=== PATIENT | male | born 1955 | race Caucasian/White ===

== ENCOUNTER → 2017-09-05 | Outpatient (CLI) | payer MEDICARE, OTHER ==
[2017-09-05 09:49] LABS: Basophils # (A) 0.1 k/uL (0-0.2); Basophils % (A) 1 %; Eosinophils # (A) 0.3 k/uL (0-0.7); Eosinophils % (A) 4 %; HCT 40.1 % (39.0-53.0); HGB 13.8 gm/dL (13.0-17.5); Lymphocytes # (A) 1.6 k/uL (1.0-4.8); Lymphocytes % (A) 26 %; MCH 28.2 pg (25.0-35.0); MCHC 34.3 g/dL (31.0-37.0); MCV 82.3 fL (80.0-100.0); Monocytes # (A) 0.5 k/uL (0-1.0); Monocytes % (A) 9 %; Neutrophils # (A) 3.4 k/uL (1.3-7.7); Neutrophils % (A) 57 %; Platelet Count 142 k/uL (150-450); RBC 4.87 m/uL (4.30-5.90); RDW 13.9 % (11.5-15.5); WBC 5.9 k/uL (3.8-10.6)
[2017-09-05 10:28] LABS: ALT 27 U/L (21-72); AST 21 U/L (17-59); Albumin 4.6 g/dL (3.5-5.0); Alkaline Phosphatase 42 U/L (38-126); Anion Gap 10 mmol/L; Blood Urea Nitrogen 16 mg/dL (9-20); Calcium 9.6 mg/dL (8.4-10.2); Carbon Dioxide 27 mmol/L (22-30); Chloride 105 mmol/L (98-107); Cholesterol 129 mg/dL (<200); Glucose 116 mg/dL (74-99); HDL Cholesterol 32 mg/dL (40-60); LDL Cholesterol,Calculated 56 mg/dL (0-99); Potassium 5.3 mmol/L (3.5-5.1); Sodium 142 mmol/L (137-145); Total Bilirubin 0.9 mg/dL (0.2-1.3); Total Protein 7.6 g/dL (6.3-8.2); Triglycerides 206 mg/dL (<150)
[2017-09-05 10:43] LABS: T4, Free (Free Thyroxine) 0.83 ng/dL (0.78-2.19)
[2017-09-05 10:57] LABS: Prostate Specific Antigen 1.52 ng/mL (0.00-4.00)
[2017-09-05 19:24] LABS: Hemoglobin A1C 5.7 % (4.0-6.0)
== END | disposition home or self-care (01) ==
LOC: LABWHC1 08:33
PROVIDERS: ATTEND Family Medicine
DX: Z00.00 Encounter for general adult medical examination without abnormal findings (principal); E11.9 Type 2 diabetes mellitus without complications; Z79.899 Other long term (current) drug therapy
CPT/HCPCS: 36415; 80053; 80061; 83036; 84153; 84439; 84443; 85025

== ENCOUNTER → 2017-09-14 | Outpatient (CLI) | payer MEDICARE, OTHER ==
--- NOTE | 2017-09-14 13:09 | XR ---
EXAMINATION TYPE: XR shoulder complete RT DATE OF EXAM: 09/14/2017 CLINICAL HISTORY: Right shoulder pain with no known injury. TECHNIQUE: Three views of the right shoulder are obtained. COMPARISON: None. FINDINGS: There is no acute fracture/dislocation evident in the right shoulder. Multiple osseous cy sts are seen at the insertion of the rotator cuff within the greater tuberosity. There is mild joint space narrowing of the glenohumeral joint. Minimal acromioclavicular arthropathy is seen as small mar ginal osteophytes. The visualized ribs are intact and unremarkable. IMPRESSION: There is no acute fracture or dislocation in the right shoulder. Mild acromioclavicular arthropathy and glenohumeral arthropathy.
--- NOTE | 2017-09-14 13:11 | XR ---
EXAMINATION TYPE: XR cervical spine limited DATE OF EXAM: 09/14/2017 TECHNIQUE: Frontal and lateral as well as open mouth view of the cervical spine are obtained. HISTORY: M54.2 Cervicalgia neck pain and right shoulder pain COMPARISON: None FINDINGS: The cervical spine is visualized in its entirety from C1 thru the top of T1 level, it is s atisfactory in alignment without evidence of acute fracture or dislocation. The pre-vertebral soft t issue appears within normal limits. There is intervertebral disc space narrowing at C5-C6 and C6-C7 w ith small anterior osteophytes at these levels as well as uncovertebral hypertrophy and facet arthrop athy. The C1-C2 articulation is within normal limits on the open mouth view. IMPRESSION: No acute fracture or dislocation is seen in the cervical spine. Multilevel degenerative change of the cervical spine. MR could be performed to evaluate for neural foraminal narrowing for di sc herniation if there is persistent pain.
== END | disposition home or self-care (01) ==
LOC: RADXRMAIN 12:40
PROVIDERS: ATTEND Family Medicine
DX: M19.011 Primary osteoarthritis, right shoulder (principal); M47.812 Spondylosis without myelopathy or radiculopathy, cervical region
CPT/HCPCS: 72040

== ENCOUNTER → 2021-02-12 | Outpatient (CLI) | payer MEDICARE ==
--- NOTE | 2021-02-12 16:08 | CT ---
EXAMINATION TYPE: CT brain wo con DATE OF EXAM: 02/12/2021 HISTORY: visual changes, dizziness CT DLP: 1408.8 mGycm. Automated Exposure Control for Dose Reduction was Utilized. TECHNIQUE: CT scan of the head is performed without contrast. COMPARISON: None. FINDINGS: There is no acute intracranial hemorrhage or midline shift identified. Right parietal crate builder niotomy change. There is mild to moderate diffuse ventricular and sulcal prominence consistent with d iffuse age-related cerebral atrophy. Asymmetric increased right temporal lobe atrophy with old infarc t central inferior right occipital lobe. Ex vacuo dilatation of the right occipital and temporal horn s noted. There is mild to moderate low-attenuation in the periventricular white matter consistent wit h chronic small vessel ischemic change. The globes are intact and the visualized sinuses are clear. IMPRESSION: No acute intracranial hemorrhage or midline shift. There is mild to moderate diffuse ag e-related cerebral atrophy and chronic small vessel ischemic change. Right-sided postsurgical change with asymmetric right-sided atrophy and old infarct all noted. Involvement medial right occipital lob e inferiorly is present and may account for visual changes. Correlation with old outside CT or MRI wo uld be beneficial.
== END | disposition home or self-care (01) ==
LOC: RADCTMAIN 15:17
PROVIDERS: ATTEND Nurse Practitioner Family
DX: H53.8 Other visual disturbances (principal)
CPT/HCPCS: 70450

== ENCOUNTER 2021-05-04 16:56 | Emergency (ER) | payer MEDICARE ==
[2021-05-04 17:18] VITALS: TEMP 97.4
[2021-05-04 17:19] VITALS: RESP 18
--- NOTE | 2021-05-04 18:31 | CT ---
EXAMINATION TYPE: CT brain clarke ceja DATE OF EXAM: 05/04/2021 COMPARISON: 02/12/2021 CT brain HISTORY: Fall Pain CT DLP: 1621.4 mGycm Automated exposure control for dose reduction was used. There is 4 x 2 cm area of hypodensity right occipital lobe related to old infarct. There is no mass e ffect or midline shift. There is mild frontal lobe cortical atrophy. There is no evidence of intracra nial hemorrhage. The calvarium is intact. The skull base is intact. The cervical vertebra show fairly normal alignment. There is a minimal C4-5 subluxation. Facet joints are intact. There is multilevel hypertrophic mild facet arthropathy. No compression fracture. IMPRESSION: Mild spondylotic changes in the cervical spine. Mild degenerative disc space narrowing at C5-6 and C6 -7. No compression fracture. 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 No acute intracranial abnormality. Brain not changed jia red to old exam.
--- NOTE | 2021-05-04 18:55 | ED ---
General Adult HPI - General Chief complaint: Fall Stated complaint: fall Time Seen by Provider: 05/04/21 17:09 Source: family, EMS, RN notes reviewed, old records reviewed Mode of arrival: EMS Limitations: language barrier - History of Present Illness Initial comments: 65-year-old male history of traumatic brain injury and making 76 presenting with an episode of altered level consciousness, and fall in the bathroom. The history is obtained from the patient's family is who is at bedside. He had a recent admission to [facility] about one week ago with a similar circumstance. He was started on seizure medication at this time. The exact details of this admission or not known but he did have EEG and is awaiting the results of this. Patient is at his baseline at the time my evaluation. He is unable to verbally communicate but his family is able to give a history. He did hit his head. Uncertain if he fell hit his head and lost consciousness or if he lost consciousness prior to this. There was no witnessed seizure activity. The return to normal within about 15 minutes. - Related Data Home Medications Medication Instructions Recorded Confirmed Aspirin EC [Ecotrin Low Dose] 81 mg PO DAILY 05/04/21 05/04/21 Atorvastatin Calcium [Lipitor] 40 mg PO HS 05/04/21 05/04/21 Clopidogrel Bisulfate [Plavix] 75 mg PO DAILY 05/04/21 05/04/21 Empagliflozin [Jardiance] 25 mg PO DAILY 05/04/21 05/04/21 Isosorbide Mononitrate ER [Imdur] 30 mg PO DAILY 05/04/21 05/04/21 Lactulose [Constulose] 10 gm PO DAILY 05/04/21 05/04/21 Loratadine 10 mg PO DAILY 05/04/21 05/04/21 Metoprolol Succinate [Toprol XL] 50 mg PO DAILY 05/04/21 05/04/21 Multivitamins, Thera [Multivitamin 1 tab PO DAILY 05/04/21 05/04/21 (formulary)] Omeprazole 20 mg PO DAILY 05/04/21 05/04/21 Rifaximin [Xifaxan] 550 mg PO BID 05/04/21 05/04/21 levETIRAcetam [Keppra] 500 mg PO BID 05/04/21 05/04/21 metFORMIN HCL 500 mg PO DAILY 05/04/21 05/04/21 Allergies Allergy/AdvReac Type Severity Reaction Status Date / Time Penicillins AdvReac Unknown Verified 05/04/21 18:59 Review of Systems ROS Statement: Those systems with pertinent positive or pertinent negative responses have been documented in the HPI. ROS Other: All systems not noted in ROS Statement are negative. Past Medical History Past Medical History: Unable to Obtain Additional Past Medical History / Comment(s): Head injury in 1973. History of Any Multi-Drug Resistant Organisms: None Reported Past Surgical History: Unable to Obtain Smoking Status: Unknown if ever smoked General Exam Limitations: language barrier General appearance: alert, in no apparent distress Head exam: Present: atraumatic, normocephalic Eye exam: Present: normal appearance, PERRL ENT exam: Present: normal exam Neck exam: Present: normal inspection. Absent: tenderness, meningismus Respiratory exam: Present: normal lung sounds bilaterally. Absent: respiratory distress, wheezes, rales Cardiovascular Exam: Present: regular rate, normal rhythm GI/Abdominal exam: Present: soft. Absent: distended, tenderness, guarding Extremities exam: Present: normal inspection, normal capillary refill. Absent: pedal edema Neurological exam: Present: alert, other (Baseline mental status) Skin exam: Present: warm, dry, intact. Absent: cyanosis, diaphoretic Course Vital Signs 05/04/21 05/04/21 16:59 19:01 Temperature 97.4 F L Pulse Rate 82 67 Respiratory 18 18 Rate Blood Pressure 149/88 163/92 O2 Sat by Pulse 94 L 98 Oximetry Medical Decision Making - Medical Decision Making 65-year-old male with fall, possible seizure. I discussed case with Dr. Richards and reviewed some of the records from [facility]. It does appear after talking Dr. Richards that the patient may be having recurrent seizure. We discussed increasing his Keppra 2000 mg twice daily. At this time the patient will be discharged home with close outpatient follow-up. 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 Unchanged. Disposition Clinical Impression: Fall, Seizure Disposition: HOME SELF-CARE Condition: Fair Instructions (If sedation given, give patient instructions): Recurrent Seizures in Adults (ED) Additional Instructions: Please take 1000 mg of Keppra twice daily.(2- 500 mg tablets twice daily.) Is patient prescribed a controlled substance at d/c from ED?: No Referrals: Alejandro Richards MD [Primary Care Provider] - 1-2 days William Aly MD [REFERRING] - 1-2 days Tereso Orlando DO [STAFF PHYSICIAN] - 1-2 days Time of Disposition: 19:00
[2021-05-04 19:02] VITALS: BP 163/92; PULSE 67
== END 2021-05-04 19:32 | disposition home or self-care (01) ==
LOC: EC 16:56
DX: R56.9 Unspecified convulsions (principal); Z88.0 Allergy status to penicillin; W18.2XXA Fall in (into) shower or empty bathtub, initial encounter
CPT/HCPCS: 70450; 72125; 99284

== ENCOUNTER 2021-08-29 14:39 | Inpatient (IN) | payer MEDICARE ==
[2021-08-29 14:54] LABS: Glucose,Whole Blood 131 mg/dL (70-110)
[2021-08-29 14:58] LABS: Basophils % (A) 1 %; Eosinophils # (A) 0.3 k/uL (0-0.7); Eosinophils % (A) 5 %; HCT 36.4 % (39.0-53.0); HGB 12.2 gm/dL (13.0-17.5); Lymphocytes # (A) 1.5 k/uL (1.0-4.8); Lymphocytes % (A) 30 %; MCH 28.1 pg (25.0-35.0); MCHC 33.5 g/dL (31.0-37.0); MCV 83.7 fL (80.0-100.0); Mean Platelet Volume 8.5; Monocytes # (A) 0.4 k/uL (0-1.0); Monocytes % (A) 8 %; Neutrophils # (A) 2.7 k/uL (1.3-7.7); Neutrophils % (A) 54 %; Platelet Count 139 k/uL (150-450); RBC 4.35 m/uL (4.30-5.90); RDW 13.5 % (11.5-15.5)
--- NOTE | 2021-08-29 14:58 | ED ---
General Adult HPI - General Stated complaint: seizure Time Seen by Provider: 08/29/21 14:39 Source: patient, RN notes reviewed, old records reviewed - History of Present Illness Initial comments: This is a 65-year-old male who presents emergency Department with a history of closed head injury back in the 70s. Patient has history of seizures and is on Keppra. According to the senior living where he stays he had 2 seizures this m orning when EMS arrived he was unresponsive and they were told that that is how he has a seizure so they gave him 5 of Versed patient never had any tonic-clonic movements. Patient does respond to sternal rub very quickly and appropriately. No other history is available this time - Related Data Home Medications Medication Instructions Recorded Confirmed Clopidogrel Bisulfate [Plavix] 75 mg PO DAILY@79905/04/21 08/29/21 Empagliflozin [Jardiance] 25 mg PO DAILY@79905/04/21 08/29/21 Isosorbide Mononitrate ER [Imdur] 30 mg PO DAILY@79905/04/21 08/29/21 Lactulose [Constulose] 10 gm PO BID@08,199905/04/21 08/29/21 Loratadine 10 mg PO DAILY@79905/04/21 08/29/21 Metoprolol Succinate [Toprol XL] 50 mg PO DAILY@79905/04/21 08/29/21 Multivitamins, Thera [Multivitamin 1 tab PO DAILY@79905/04/21 08/29/21 (formulary)] Omeprazole 20 mg PO DAILY@79905/04/21 08/29/21 Rifaximin [Xifaxan] 550 mg PO BID@08,199905/04/21 08/29/21 metFORMIN HCL 500 mg PO DAILY@79905/04/21 08/29/21 Ibuprofen [Motrin] 600 mg PO Q8HR PRN 08/29/21 08/29/21 levETIRAcetam [Keppra] 1,000 mg PO BID@0800,199908/29/21 08/29/21 levETIRAcetam [Keppra] 250 mg PO BID@0800,199908/29/21 08/29/21 Allergies Allergy/AdvReac Type Severity Reaction Status Date / Time Penicillins AdvReac Unknown Verified 08/29/21 16:14 Review of Systems ROS Statement: Those systems with pertinent positive or pertinent negative responses have been documented in the HPI. ROS Other: All systems not noted in ROS Statement are negative. Past Medical History Past Medical History: Unable to Obtain Additional Past Medical History / Comment(s): Head injury in 1973. History of Any Multi-Drug Resistant Organisms: None Reported Past Surgical History: Unable to Obtain Smoking Status: Unknown if ever smoked General Exam - General Exam Comments Initial Comments: GENERAL: Patient is well-developed and well-nourished. Patient is nontoxic and well- hydrated and is in no acute distress. ENT: Neck is soft and supple. Neck has full range of motion without eliciting any pain. EYES: The sclera were anicteric and conjunctiva were pink and moist. PULMONARY: Unlabored respirations. Good breath sounds bilaterally. No audible rales rhonchi or wheezing was noted. CARDIOVASCULAR: Patient is tachycardic at 105 bpm ABDOMEN: Soft and nontender with normal bowel sounds. SKIN: Skin is clear with no lesions or rashes and otherwise unremarkable. NEUROLOGIC: Patient is not responding at this time. Patient is able to move all 4 extremities. MUSCULOSKELETAL: Patient does move all 4 extremities. LYMPHATICS: No significant lymphadenopathy is noted PSYCHIATRIC: Unable to assess Course Vital Signs 08/29/21 08/29/21 08/29/21 14:41 14:56 15:33 Temperature 97.6 F Pulse Rate 79 75 72 Respiratory 16 18 18 Rate Blood Pressure 119/77 128/89 O2 Sat by Pulse 95 94 L Oximetry Medical Decision Making - Medical Decision Making EKG shows sinus rhythm at 75 bpm CA interval 295 QRS is 90 QT interval 383 QTC is 411. EKG shows no ST segment elevation or depression. CT of the brain shows no acute abnormalities. I spoke with the mother and she states that he was diagnosed with seizures even though all of his episodes of unresponsive episode and that no testing is been done to determine that he had seizures. She is questioning whether he has seizures. I spoke with Dr. England he agreed to admit the patient admitted the patient wrote admitting orders. I consult the neurology. - Lab Data Result diagrams: 08/29/21 14:50 08/29/21 14:50 Lab Results 08/29/21 08/29/21 08/29/21 Range/Units 14:50 14:50 14:52 WBC 5.0 (3.8-10.6) k/uL RBC 4.35 (4.30-5.90) m/uL Hgb 12.2 L (13.0-17.5) gm/dL Hct 36.4 L (39.0-53.0) % MCV 83.7 (80.0-100.0) fL MCH 28.1 (25.0-35.0) pg MCHC 33.5 (31.0-37.0) g/dL RDW 13.5 (11.5-15.5) % Plt Count 139 L (150-450) k/uL MPV 8.5 Neutrophils % 54 % Lymphocytes % 30 % Monocytes % 8 % Eosinophils % 5 % Basophils % 1 % Neutrophils # 2.7 (1.3-7.7) k/uL Lymphocytes # 1.5 (1.0-4.8) k/uL Monocytes # 0.4 (0-1.0) k/uL Eosinophils # 0.3 (0-0.7) k/uL Basophils # 0.0 (0-0.2) k/uL Sodium 138 (137-145) mmol/L Potassium 3.9 (3.5-5.1) mmol/L Chloride 109 H (98-107) mmol/L Carbon Dioxide 23 (22-30) mmol/L Anion Gap 6 mmol/L BUN 12 (9-20) mg/dL Creatinine 0.56 L (0.66-1.25) mg/dL Est GFR (CKD-EPI)AfAm >90 (>60 ml/min/1.73 sqM) Est GFR (CKD-EPI)NonAf >90 (>60 ml/min/1.73 sqM) Glucose 140 H (74-99) mg/dL POC Glucose (mg/dL) 131 H (70-110) mg/dL POC Glu Personal Assistant ID Carlos, Pamela Calcium 8.7 (8.4-10.2) mg/dL Total Bilirubin 0.4 (0.2-1.3) mg/dL AST 23 (17-59) U/L ALT 14 (4-49) U/L Alkaline Phosphatase 50 (38-126) U/L Total Protein 6.3 (6.3-8.2) g/dL Albumin 3.7 (3.5-5.0) g/dL Disposition Clinical Impression: Unresponsive episode Disposition: ADMITTED IP TO THIS HOSP Referrals: Alejandro Richards MD [STAFF PHYSICIAN] - 1-2 days Time of Disposition: 16:40
[2021-08-29 15:07] LABS: ALT 14 U/L (4-49); AST 23 U/L (17-59); African American GFR (CKD) >90 (>60 ml/min/1.73 sqM); Albumin 3.7 g/dL (3.5-5.0); Alkaline Phosphatase 50 U/L (38-126); Anion Gap 6 mmol/L; Blood Urea Nitrogen 12 mg/dL (9-20); Calcium 8.7 mg/dL (8.4-10.2); Carbon Dioxide 23 mmol/L (22-30); Chloride 109 mmol/L (98-107); Glucose 140 mg/dL (74-99); Non-African American GFR(CKD) >90 (>60 ml/min/1.73 sqM); Potassium 3.9 mmol/L (3.5-5.1); Sodium 138 mmol/L (137-145); Total Bilirubin 0.4 mg/dL (0.2-1.3); Total Protein 6.3 g/dL (6.3-8.2)
--- NOTE | 2021-08-29 15:11 | XR ---
EXAMINATION TYPE: XR chest 1V portable DATE OF EXAM: 08/29/2021 3:08 PM COMPARISON: None TECHNIQUE: XR chest 1V portable Portable AP radiograph of the chest. CLINICAL INDICATION:Male, 65 years old with history of Short of breath; FINDINGS: Lungs/Pleura: Airspace opacities are seen projecting over the heart. No pneumothorax or pleural effus ion. Pulmonary vascularity: Unremarkable. Heart/mediastinum: Cardiomediastinal silhouette is unremarkable. Musculoskeletal: No acute osseous pathology. IMPRESSION: Left lower lung airspace opacities correlate for pneumonia.
--- NOTE | 2021-08-29 15:48 | CT ---
EXAMINATION TYPE: CT brain wo con CT DLP: 1247.4 mGycm, Automated exposure control for dose reduction was used. DATE OF EXAM: 08/29/2021 3:40 PM COMPARISON: CT brain most recently 05/04/2021 CLINICAL INDICATION:Male, 65 years old with history of Status epilepticus, TECHNIQUE: Brain: Multiple axial CT images of the brain were obtained without IV contrast. FINDINGS: Brain: Extra-axial spaces: No abnormal extra-axial fluid collections. Ventricular system: Mild ex vacuo dilatation of the right lateral ventricle trigone and temporal horn . Cerebral parenchyma: Encephalomalacia of the right occipital lobe and temporal lobe from prior injury findings are similar to prior. No acute intraparenchymal hemorrhage or mass effect. The yung-white junction is well differentiated. Cerebellum: Unremarkable. Mass effect: No evidence of midline shift. Intracranial vasculature: unremarkable Soft tissues: Normal. Calvarium/osseous structures: No depressed skull fracture. Postsurgical changes of the right skull. Paranasal sinuses and mastoid air cells: Mild scattered paranasal sinus disease. Visualized orbits: Bilateral aphakia IMPRESSION: 1. No acute intracranial process. 2. Similar encephalomalacia of the right temporal and occipital lobe from prior injury.
[2021-08-29] MEDS ORDERED: LORazepam 2 MG/ML INJ IV PRN (20:53)
[2021-08-29] MEDS ORDERED: LORazepam 2 MG/ML INJ IV STA (20:53)
[2021-08-29] MEDS ORDERED: levETIRAcetam IV 1,500 MG in SALINE 1 100ML.BAG IVPB ONE (21:00)
[2021-08-29 23:15] LABS: Glucose,Whole Blood 113 mg/dL (70-110)
[2021-08-30 07:29] LABS: Glucose,Whole Blood 121 mg/dL (70-110)
[2021-08-30] MEDS ORDERED: levETIRAcetam 250 MG TAB PO SCH (08:00)
[2021-08-30] MEDS ORDERED: levETIRAcetam 500 MG TAB PO SCH (08:00)
--- NOTE | 2021-08-30 08:13 | P.CNNES ---
History of Present Illness Consult date: 08/30/21 Requesting physician: Vitor Iraheta Reason for Consult: unresponsive episodes History of Present Illness: This is a 65-year-old gentleman with medical history of seizure, remote closed head injury who presented to the emergency department from custodial since he had seizures. History is obtained from medical record that. It seems that the patient had the 2 seizures in the morning according to the ED notes and when the EMS arrived the patient was unresponsive and as a result the patient the given 5 mg Versed. In the ED the patient was responding to sternal rub. Patient is on Keppra 1250 mg 1 tablet twice a day for seizures. Patient is following up with his neurologist (Dr. Tejinder Vásquez). It seems per the nurse yesterday during the day prior to shift change, the mother notified the nurse that did not feel his episodes of unresponsiveness were seizures but even though the patient was getting Keppra. I do know to what extent the patient had a workup at his local neurologist office. While the patient was on the floors patient had further seizure and I was notified around 8:42 PM yesterday by the nurse that the patient had a seizure lasting for about 45 minutes and it was between 2028 2023. I notified her to give the patient to milligram Ativan, to give him a loading dose of Keppra 1500 mg once, if he continues to have seizures to give them 100 mg on Vimpat once and Ativan 1 mg every 4 hours as needed for seizures. According to today's nurse patient had a total of 5 seizures and unsure when was the last 1 possibly could have been yesterday at 9pm but unsure. I spoke with the sitter and they stated no seizures prior to midnight. It seems the patient was not given Vimpat and I assume he did not have any seizures after I spoke to the patient's nurse last night SOME OF THE WORK-UP IN OUR FACILITY CONSISTED OF: Initial white blood cells 5.0 thousand Initial serum glucose was 140 at. The calcium is 8.7. Sodium is 138, creatinine is up 0.56. AST and ALT is within normal limits Keppra level was 20.1 (normal is between 3-60). CT head is reported as no acute intracranial process. Similar encephalomalacia of the right temporal and occipital lobe from prior injury. I personally reviewed the CT of the head and I agree with report. The patient does have a skull defect over the right hemisphere. Review of Systems Review of system is limited with apparent positive and negative as per HPI Past Medical History Past Medical History: Diabetes Mellitus, Liver Disease, Myocardial Infarction ([place]) Additional Past Medical History / Comment(s): Head injury in 1973. Last Myocardial Infarction Date:: unknown History of Any Multi-Drug Resistant Organisms: None Reported Past Surgical History: Appendectomy, Orthopedic Surgery Additional Past Surgical History / Comment(s): brain, samson left leg, left leg cyst removal Past Anesthesia/Blood Transfusion Reactions: No Reported Reaction Past Psychological History: No Psychological Hx Reported Smoking Status: Former smoker Past Alcohol Use History: Unable to Obtain Past Drug Use History: Unable to Obtain Medications and Allergies Home Medications Medication Instructions Recorded Confirmed Type Clopidogrel Bisulfate [Plavix] 75 mg PO DAILY@00 05/04/21 08/29/21 History Empagliflozin [Jardiance] 25 mg PO DAILY@79905/04/21 08/29/21 History Isosorbide Mononitrate ER [Imdur] 30 mg PO DAILY@79905/04/21 08/29/21 History Lactulose [Constulose] 10 gm PO BID@799,199905/04/21 08/29/21 History Loratadine 10 mg PO DAILY@79905/04/21 08/29/21 History Metoprolol Succinate [Toprol XL] 50 mg PO DAILY@0805/04/21 08/29/21 History Multivitamins, Thera [Multivitamin 1 tab PO DAILY@79905/04/21 08/29/21 History (formulary)] Omeprazole 20 mg PO DAILY@79905/04/21 08/29/21 History Rifaximin [Xifaxan] 550 mg PO BID@799,199905/04/21 08/29/21 History metFORMIN HCL 500 mg PO DAILY@79905/04/21 08/29/21 History Ibuprofen [Motrin] 600 mg PO Q8HR PRN 08/29/21 08/29/21 History levETIRAcetam [Keppra] 1,000 mg PO BID@08,199908/29/21 08/29/21 History levETIRAcetam [Keppra] 250 mg PO BID@08,199908/29/21 08/29/21 History Allergies Allergy/AdvReac Type Severity Reaction Status Date / Time Penicillins AdvReac Unknown Verified 08/29/21 16:14 Physical Examination - Vital Signs Vital Signs: Vital Signs Temp Pulse Pulse Resp BP BP Pulse Ox 08/30/21 06:51 97.6 F 78 13 134/78 95 08/30/21 04:23 97.8 F 84 16 148/94 93 L 08/29/21 19:42 97.9 F 80 16 153/91 95 08/29/21 17:57 97 F L 71 22 120/80 95 08/29/21 17:00 97.9 F 68 18 115/65 95 08/29/21 16:00 64 18 113/65 94 L 08/29/21 15:33 72 18 128/89 94 L 08/29/21 14:56 75 18 95 08/29/21 14:41 97.6 F 79 16 119/77 Intake and Output 08/29/21 08/30/21 08/30/21 22:59 06:59 14:59 Intake Total 580 Balance 580 Intake: Intake, IV Titration 100 Amount levETIRAcetam IV 1,500 mg 100 In Saline 1 100ml.bag @ 400 mls/hr IVPB ONCE ONE Rx#:[id number] Oral 480 Other: Voiding Method Bedpan Urinal # Voids 1 4 Weight 86.999 kg GENERAL: The patient is lying in bed and does not appear in acute distress. CHEST: The heart rate is regular rate rhythm. No murmurs to auscultation. LUNG: Clear to auscultation bilaterally no wheezing noted throughout. Not lab ored breathing. ABDOMEN/GI: Bowel sounds present in all 4 quadrants. No tenderness to palpation throughout. NEUROLOGICAL: Limited because of his condition. Higher mental function: The patient is severely drowsy and minimally/hardly awakeable to painful stimuli. He is not vocalizing verbally. But he is following few simple commands (thumbs up, sticking tongue out, and wiggling his toes). Cranial nerves: The pupils are hard to assess since kept his eyes closed and then when trying to open them he was forcing his eyes closed. No facial weakness. Sticking his tongue out without any difficulty. r Motor: The strength is unable to assess individual extremities because of his condition. Decrease tone throughout. Normal bulk. Cerebellum: Unable to assess. Sensation: Unable to assess light touch Reflexes (right/left): 1+ throughout. Plantars are mute bilaterally. Results - Laboratory Findings CBC and BMP: 08/29/21 14:50 08/29/21 14:50 Abnormal Lab Findings: Abnormal Labs 08/29/21 08/29/21 08/29/21 14:50 14:50 14:52 Hgb 12.2 L Hct 36.4 L Plt Count 139 L Chloride 109 H Creatinine 0.56 L Glucose 140 H POC Glucose (mg/dL) 131 H 08/29/21 08/30/21 23:14 07:27 Hgb Hct Plt Count Chloride Creatinine Glucose POC Glucose (mg/dL) 113 H 121 H Assessment and Plan Assessment: Status Epilepticus (patient had reported multiple unresponsiveness/seizure-like activities). He is on Keppra 1250mg bid but his level is 20.1 and would expect his level to be higher if he is on that dose. Unsure if he missed any medications/not given as prescribed vs Gastrointestinal symptoms (diarrhea, vomiting). History of seizures History of remote closed head injury (in ) History of encephalomalcia over the right temporal/occipital region Plan: I increased his Keppra from 1250mg bid to 1500mg and for now IV. Will consider starting also Vimpat. Ordered EEG. on Ativan 1mg Q4 hours. Continue neuro checks Placed on seizure precaution and pad. Continue sitter at bedside for now Will defer the rest of medical management to primary team. Upon discharge, patient needs to follow-up with a neurologist within 1-2 weeks. He follows-up with Dr. Tejinder Vásquez. The plan is discussed with nurse. Thank you for the consultation. UPDATE: Routine EEG did not reveal any seizures, epileptiform discharges or focal slowing. As result I will not start patient on Vimpat. I will order repeat Keppra level at night tonight and will assess if level improves. If does then one of possibilities is having GI symptoms or patient not getting medication at his nursing facility. Plan is discussed with primary team. Tejinder Lundberg M.D. Neuro-Hospitalist Time with Patient: Greater than 30
[2021-08-30] MEDS ORDERED: LACOSAMIDE IV 50 MG in SODIUM CHLORIDE 0.9% 50 ML IVPB SCH (09:00)
[2021-08-30] MEDS: levETIRAcetam IV 1,500 MG in SALINE 1 100ML.BAG IVPB SCH ×2 (09:10→20:52)
[2021-08-30] MEDS: CLOPIDOGREL 75 MG TAB PO SCH (09:23)
[2021-08-30] MEDS: METOPROLOL SUCCINATE (ER) 50 MG TAB.ER.24H PO SCH (09:23)
[2021-08-30] MEDS: ISOSORBIDE MONONITRATE ER 30 MG TAB.ER.24H PO SCH (09:24)
[2021-08-30] MEDS: RIFAXIMIN 550 MG TABLET PO SCH ×2 (09:25→20:48)
[2021-08-30] MEDS: LORATADINE 10 MG TAB PO SCH (09:25)
[2021-08-30] MEDS: LACTULOSE 20 GM/30 ML CUP PO SCH ×2 (09:26→20:48)
[2021-08-30] MEDS: PANTOPRAZOLE 40 MG TABLET PO SCH (09:26)
--- NOTE | 2021-08-30 11:22 | EEG ---
ELECTROENCEPHALOGRAM REPORT DATE OF SERVICE: 08/30/2021. 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 The video EEG is obtained to evaluate for seizure epileptiform activity. RELEVANT MEDICATIONS: Keppra and Ativan. EEG TYPE: A routine 21 channel EEG is performed with video using the 10/20 electrode placement system. DESCRIPTION: Wakefulness and drowsiness are obtained. During awake state, the posterior- dominant rhythm consists of low to moderate voltage of 9-10 hertz activity. There is no physiological stage 2 sleep architecture. There is no focal slowing. There is high amplitude activity over the left central-parietal region consistent with breach rhythm. Interictal and ictal is none. Photic stimulation did not evoke a posterior driving response. There is no abnormality during the photic stimulation. Hyperventilation is not performed. CLINICAL INTERPRETATION: This is an abnormal routine EEG. The breach rhythm is consistent with the patient's history of skull defect. Otherwise, the background is normal and there is no focal slowing, epileptiform discharges or seizure on the EEG. Clinical correlation is recommended. MMODL / IJN: [id number] / MTDDavi
[2021-08-30] MEDS: NON FORMULARY DRUG (Empagliflozin [Jardiance] 25 MG Tablet) PO SCH (11:28)
[2021-08-30 11:52] LABS: Glucose,Whole Blood 173 mg/dL (70-110)
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
[2021-08-30] MEDS: INSULIN ASPART (NovoLOG) 100 UNIT/ML VIAL SQ SCH ×3 (13:05→20:47)
[2021-08-30 17:23] LABS: Glucose,Whole Blood 139 mg/dL (70-110)
[2021-08-30] MEDS ORDERED: HYDROcodone/APAP 5-325MG 1 EACH TAB PO PRN (18:43)
[2021-08-30] MEDS ORDERED: LIDOCAINE 2% GEL 30 ML TUBE TOPICAL PRN (18:43)
[2021-08-30 19:53] LABS: Glucose,Whole Blood 203 mg/dL (70-110)
[2021-08-30] MEDS: HEPARIN SODIUM,PORCINE/PF 5,000 UNIT/0.5 ML SYRINGE SQ SCH (20:48)
[2021-08-31 08:14] LABS: Glucose,Whole Blood 120 mg/dL (70-110)
[2021-08-31] MEDS: INSULIN ASPART (NovoLOG) 100 UNIT/ML VIAL SQ SCH ×2 (08:16→12:36)
[2021-08-31 08:21] VITALS: RESP 18
[2021-08-31] MEDS: RIFAXIMIN 550 MG TABLET PO SCH (09:11)
[2021-08-31] MEDS: ISOSORBIDE MONONITRATE ER 30 MG TAB.ER.24H PO SCH (09:11)
[2021-08-31] MEDS: LORATADINE 10 MG TAB PO SCH (09:11)
[2021-08-31] MEDS: CLOPIDOGREL 75 MG TAB PO SCH (09:11)
[2021-08-31] MEDS: LACTULOSE 20 GM/30 ML CUP PO SCH (09:12)
[2021-08-31] MEDS: METOPROLOL SUCCINATE (ER) 50 MG TAB.ER.24H PO SCH (09:12)
[2021-08-31] MEDS: HEPARIN SODIUM,PORCINE/PF 5,000 UNIT/0.5 ML SYRINGE SQ SCH (09:12)
[2021-08-31] MEDS: PANTOPRAZOLE 40 MG TABLET PO SCH (09:12)
[2021-08-31] MEDS: levETIRAcetam IV 1,500 MG in SALINE 1 100ML.BAG IVPB SCH (09:14)
[2021-08-31] MEDS: NON FORMULARY DRUG (Empagliflozin [Jardiance] 25 MG Tablet) PO SCH (09:19)
[2021-08-31 11:23] LABS: Glucose,Whole Blood 226 mg/dL (70-110)
[2021-08-31 11:42] VITALS: BP 128/75; PULSE 87; TEMP 97.7
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
== END 2021-08-31 15:30 | disposition home or self-care (01) | DRG 101 ==
LOC: EC 14:39 → 5NMEDONC 16:48
PROVIDERS: ADMIT Internal Medicine Geriatric Medicine; ATTEND Internal Medicine Geriatric Medicine
DX: G40.901 Epilepsy, unspecified, not intractable, with status epilepticus (principal); G93.89 Other specified disorders of brain; I10 Essential (primary) hypertension; I25.10 Atherosclerotic heart disease of native coronary artery without angina pectoris; I25.2 Old myocardial infarction; J30.2 Other seasonal allergic rhinitis; M54.12 Radiculopathy, cervical region; E11.9 Type 2 diabetes mellitus without complications; Z87.820 Personal history of traumatic brain injury; Z87.891 Personal history of nicotine dependence; Z82.49 Family history of ischemic heart disease and other diseases of the circulatory system; Z79.899 Other long term (current) drug therapy; Z79.84 Long term (current) use of oral hypoglycemic drugs; Z79.02 Long term (current) use of antithrombotics/antiplatelets; Z86.19 Personal history of other infectious and parasitic diseases; K76.9 Liver disease, unspecified
CPT/HCPCS: 36415; 70450; 71045; 80053; 80177; 85025; 93005; 95816; 99285

== ENCOUNTER 2021-09-06 10:18 | Observation (INO) | payer MEDICARE ==
[2021-09-06] MEDS ORDERED: levETIRAcetam IV 1,000 MG in SALINE 1 100ML.BAG IVPB STA (10:40)
[2021-09-06 10:41] LABS: Glucose,Whole Blood 151 mg/dL (70-110)
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
[2021-09-06 10:55] LABS: Basophils % (A) 1 %; Eosinophils # (A) 0.2 k/uL (0-0.7); Eosinophils % (A) 5 %; HCT 39.9 % (39.0-53.0); HGB 13.1 gm/dL (13.0-17.5); Lymphocytes # (A) 1.3 k/uL (1.0-4.8); Lymphocytes % (A) 28 %; MCH 27.4 pg (25.0-35.0); MCHC 32.7 g/dL (31.0-37.0); MCV 83.7 fL (80.0-100.0); Mean Platelet Volume 8.8; Monocytes # (A) 0.5 k/uL (0-1.0); Monocytes % (A) 11 %; Neutrophils # (A) 2.5 k/uL (1.3-7.7); Neutrophils % (A) 53 %; Platelet Count 140 k/uL (150-450); RBC 4.77 m/uL (4.30-5.90); RDW 13.4 % (11.5-15.5); WBC 4.7 k/uL (3.8-10.6)
[2021-09-06 11:03] LABS: African American GFR (CKD) >90 (>60 ml/min/1.73 sqM); Anion Gap 7 mmol/L; Blood Urea Nitrogen 15 mg/dL (9-20); Calcium 8.9 mg/dL (8.4-10.2); Carbon Dioxide 25 mmol/L (22-30); Chloride 105 mmol/L (98-107); Glucose 168 mg/dL (74-99); Magnesium 1.9 mg/dL (1.6-2.3); Non-African American GFR(CKD) >90 (>60 ml/min/1.73 sqM); Potassium 3.9 mmol/L (3.5-5.1); Sodium 137 mmol/L (137-145)
[2021-09-06] MEDS ORDERED: NALOXONE 0.4 MG/ML 1 ML VIAL IV PRN (14:00)
[2021-09-06] MEDS ORDERED: SODIUM CHLORIDE 0.9% 1,000 ML IV SCH (14:00)
[2021-09-06] MEDS ORDERED: LORazepam 2 MG/ML INJ IV PRN (14:01)
[2021-09-06] MEDS ORDERED: IBUPROFEN 600 MG TAB PO PRN (16:00)
--- NOTE | 2021-09-06 16:39 | CT ---
EXAMINATION TYPE: CT brain wo con DATE OF EXAM: 09/06/2021 COMPARISON: 08/29/2021 HISTORY: 65-year-old male seizure TECHNIQUE: Examination was done in axial plane without intravenous contrast. Coronal and sagittal r econstructions performed. CT DLP: 1181.4 mGycm Automated exposure control for dose reduction was used. FINDINGS: There is no evidence of acute intracranial hemorrhage, acute ischemic changes, mass, mass-effect, or extra-axial fluid collection. There is no effacement of cerebral sulci or basal subarachnoid cister ns. There is no hydrocephalus. There is no midline shift. Duncan-white matter distinction is preserv ed. Moderate generalized supratentorial volume loss. Old right occipital lobe infarct. Secondary asymmetr ic ex vacuo dilatation atrium and occipital horn right lateral ventricle. Old antonio hole right lateral convexity. Paranasal sinuses and mastoid air cells are well pneumatized. Orbits and globes are intact. IMPRESSION: No acute intracranial abnormality seen. Stable mild generalized atrophy and old right occipital lobe infarct.
--- NOTE | 2021-09-06 16:40 | XR ---
EXAMINATION TYPE: XR chest 1V portable DATE OF EXAM: 09/06/2021 COMPARISON: Chest x-ray dated 08/29/2021 HISTORY: Congestive heart failure TECHNIQUE: Single frontal view of the chest is obtained. FINDINGS: Lung volumes are low. Some perihilar vascular indistinctness is again noted. There is no fo madeline air space opacity, pleural effusion, or pneumothorax seen. The cardiac silhouette size is stable . The osseous structures are intact. IMPRESSION: Findings may be the basis of expiratory technique, difficult to exclude interstitial noel ma although findings appear somewhat improved compared to prior exam. Consider follow-up PA and later al chest x-ray when stable.
[2021-09-06 16:44] LABS: Appearance,Urine Clear (Clear); Bilirubin,Urine Negative (Negative); Blood,Urine Negative (Negative); Color,Urine Yellow; Glucose,Urine (UA) 4+ (Negative); Ketones,Urine Negative (Negative); Leukocyte Esterase,Urine Negative (Negative); Nitrite,Urine Negative (Negative); PH, Urine 6.5 (5.0-8.0); Protein,Urine Negative (Negative); Specific Gravity,Urine 1.024 (1.001-1.035); Urobilinogen,Urine <2.0 mg/dL (<2.0)
--- NOTE | 2021-09-06 17:08 | HP ---
HISTORY AND PHYSICAL DATE OF SERVICE: 09/06/2021 CHIEF COMPLAINT: Seizures. HISTORY OF PRESENT ILLNESS: This 65-year-old gentleman with a past medical history of diabetes mellitus, liver disease, myocardial infarction, seizure disorder, being followed Dr. England in [facility] home, was noted to have witnessed seizures. The patient apparently had a fall, witnessed seizures, and the patient was taken to [facility] for further evaluation and treatment. The patient previously had an abnormal EEG and neurologic evaluation recently. His Keppra was increased to 1500 mg twice daily. There is no history of any trauma. The patient is unable to give a detailed, coherent history; most of the history is taken from my discussions with staff as well as review of the chart at this time. PAST MEDICAL HISTORY: Past medical history is reviewed and includes diabetes mellitus, liver disease and seizure disorder. HOME MEDICATIONS: Once again reviewed. They include Keppra 1500 mg p.o. b.i.d. Rest of the medications and doses are reviewed. ALLERGIES: PENICILLIN. Family history, social history, review of systems could not be taken; the patient is dysphasic at this time. PHYSICAL EXAMINATION: Pulse 76, blood pressure 125/84, respiration 18. HEENT: Conjunctivae normal. NECK: No jugular venous distention. CARDIOVASCULAR: S1, S2 muffled. RESPIRATION: Breath sounds diminished at the bases. A few scattered rhonchi. No crackles. ABDOMEN: Soft, nontender. LEGS: No edema. No swelling. NERVOUS SYSTEM: Facial deviation on the right side; otherwise diffuse weakness. SKIN: No ulcer, rash, bleeding. JOINTS: No active deforming arthropathy. LABS: WBC 4.7. Other labs are noted. ASSESSMENT: 1. Acute generalized tonic/clonic seizures and breakthrough seizures. 2. Diabetes mellitus, type 2. 3. Chronic liver disease. 4. History of head injury. RECOMMENDATIONS AND DISCUSSION: In this 65-year-old gentleman who presented with multiple medical issues, at this time we will continue the current medications. I would recommend neurology consultation. The patient was given 1000 mg IV Keppra. The Keppra levels are not available. Otherwise, we will continue to monitor. The prognosis is guarded because of multiple complex medical issues. Further recommendations to follow. See orders for further details. Will check for any infections and obtain the baseline evaluation, including chest x-rays and CT scan of the brain. MMODL / IJN: [id number] /
[2021-09-06] MEDS ORDERED: CYCLOBENZAPRINE 10 MG TAB PO SCH (20:00)
[2021-09-06] MEDS: LACTULOSE 20 GM/30 ML CUP PO SCH (20:22)
[2021-09-06] MEDS: LACOSAMIDE 50 MG TABLET PO SCH (20:22)
[2021-09-06] MEDS: RIFAXIMIN 550 MG TABLET PO SCH (20:22)
[2021-09-07] MEDS ORDERED: PANTOPRAZOLE 40 MG TABLET PO SCH (07:30)
[2021-09-07 07:32] VITALS: RESP 16
[2021-09-07] MEDS ORDERED: METOPROLOL SUCCINATE (ER) 50 MG TAB.ER.24H PO SCH (08:00)
[2021-09-07] MEDS ORDERED: ISOSORBIDE MONONITRATE ER 30 MG TAB.ER.24H PO SCH (08:00)
[2021-09-07] MEDS ORDERED: metFORMIN 500 MG TAB PO SCH (08:00)
[2021-09-07] MEDS ORDERED: CLOPIDOGREL 75 MG TAB PO SCH (08:00)
[2021-09-07] MEDS ORDERED: MULTIVITAMINS, THERA 1 EACH TAB PO SCH (08:00)
[2021-09-07] MEDS ORDERED: LORATADINE 10 MG TAB PO SCH (08:00)
[2021-09-07] MEDS ORDERED: PATIENT'S OWN (Empagliflozin [Jardiance] 25 MG Tablet) PO SCH (08:00)
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
[2021-09-07] MEDS: LACOSAMIDE 50 MG TABLET PO SCH (08:54)
[2021-09-07] MEDS: RIFAXIMIN 550 MG TABLET PO SCH (08:54)
[2021-09-07] MEDS: LACTULOSE 20 GM/30 ML CUP PO SCH (08:55)
[2021-09-07] MEDS ORDERED: levETIRAcetam 500 MG TAB PO SCH (09:00)
[2021-09-07 09:14] LABS: African American GFR (CKD) 116.4 (60.0-200.0); Albumin 4.2 g/dL (3.8-4.9); Albumin/Globulin Ratio 1.83 (1.60-3.17); Anion Gap 10.3 mmol/L (10.00-18.00); BUN/Creat Ratio 17.29 Ratio (12.00-20.00); Blood Urea Nitrogen 12.1 mg/dL (9.0-27.0); Carbon Dioxide 24.7 mmol/L (20.0-27.5); Globulin 2.3 g/dL (1.6-3.3); Non-African American GFR(CKD) 100.4 (60.0-200.0); Potassium 4.1 mmol/L (3.5-5.5); Total Bilirubin 0.5 mg/dL (0.30-1.20); Total Protein 6.5 g/dL (6.2-8.2)
[2021-09-07 09:15] LABS: Basophils # (A) 0.04 X 10*3/uL (0.00-0.10); Basophils % (A) 0.8 %; Eosinophils # (A) 0.27 X 10*3/uL (0.04-0.35); Eosinophils % (A) 5.1 %; HCT 41.3 % (39.6-50.0); Immature Grans, Automated 0.2 %; Lymphocytes # (A) 1.73 X 10*3/uL (0.90-5.00); Lymphocytes % (A) 32.5 %; MCH 26.5 pg (27.0-32.0); MCHC 31.5 g/dL (32.0-37.0); MCV 84.3 fL (80.0-97.0); Mean Platelet Volume 11.1 fL (9.5-12.2); Monocytes % (A) 11.3 %; NRBC Per 100 WBC 0 /100 WBCS (0.0-0.0); Neutrophils # (A) 2.67 X 10*3/uL (1.80-7.70); Neutrophils % (A) 50.1 %; Platelet Count 153 X 10*3/uL (140-440); RDW 13.4 % (11.5-14.5); WBC 5.32 X 10*3/uL (4.50-10.00)
[2021-09-07 14:10] VITALS: BP 128/81; PULSE 96; TEMP 97.5
--- NOTE | 2021-09-07 19:28 | DS ---
DISCHARGE SUMMARY FINAL DIAGNOSES: 1. Acute generalized tonic/clonic seizures with breakthrough seizures. 2. Possible noncompliance. 3. Diabetes mellitus, type 2. 4. Chronic liver disease. 5. History of head injury. DISCHARGE DISPOSITION: The patient will be discharged in stable condition with guarded prognosis. Neurology cleared the patient for discharge. HISTORY OF PRESENT ILLNESS: This 65-year-old gentleman with a past medical history of multiple medical problems was admitted with generalized tonic/clonic seizures. The patient was on Keppra. The dose was recently increased; however, it was doubtful whether the patient got the medications. In any case, Neurology saw the patient and recommended adding Vimpat to the current regimen. The Keppra level was reported at 37.6. The patient is discharged in stable condition with guarded prognosis with the recommendation of Neurology. On exam, vitals are stable. CARDIOVASCULAR: S1, S2 muffled. ABDOMEN: Soft. NERVOUS SYSTEM: Diffusely weak and dysphasic. DISCHARGE ADVICE AND MEDICATIONS: Continue the rest of medications. Please refer to the discharge medication record sheet for list of medications. Continue with Keppra 1500 mg p.o. b.i.d. Add Vimpat 50 mg p.o. b.i.d. Follow up with Dr. Vásquez, patient's neurologist, next week. Follow up with Dr. England, the primary physician. MMSUSANNAL / SHAILESHN: [id number] /
== END 2021-09-07 17:02 ==
LOC: EC 10:18 → 6NMEDSUR 14:00
PROVIDERS: ADMIT Internal Medicine; ATTEND Internal Medicine
DX: G40.909 Epilepsy, unspecified, not intractable, without status epilepticus (principal); E11.9 Type 2 diabetes mellitus without complications; K76.9 Liver disease, unspecified; I50.9 Heart failure, unspecified; H53.462 Homonymous bilateral field defects, left side; I25.2 Old myocardial infarction; Z87.891 Personal history of nicotine dependence; Z79.84 Long term (current) use of oral hypoglycemic drugs; Z88.0 Allergy status to penicillin; Z79.02 Long term (current) use of antithrombotics/antiplatelets; Z79.899 Other long term (current) drug therapy; Z87.820 Personal history of traumatic brain injury
CPT/HCPCS: 99285; 36415; 93005; 80053; 80048; 80177; 82140; 83735; 85025 ×2; 81003; 71045; 70450; G0378 ×2; J1953

== ENCOUNTER 2021-09-10 13:12 | Emergency (ER) | payer MEDICARE ==
--- NOTE | 2021-09-10 13:34 | ED ---
General Adult HPI - General Chief complaint: Seizure Stated complaint: SEIZURES Time Seen by Provider: 09/10/21 13:15 Source: patient, EMS, RN notes reviewed, old records reviewed Mode of arrival: EMS Limitations: language barrier, physical limitation - History of Present Illness Initial comments: This is a 65-year-old male who has had a traumatic brain injury in the past and states that all foster care. Patient had a seizure today and so he was brought to the emergency department. Patient had a seizure on Thursday as well as on and he was admitted to the hospital for one day and loaded up on Keppra at that time. Patient takes Vimpat and Keppra. According to staff per EMS the patient has been taking all of his doses of medication. Patient states she's having no pain and denies any problems however because of his medical training. Difficult to assess his accuracy. No one is with the patient to give any further information. - Related Data Home Medications Medication Instructions Recorded Confirmed Clopidogrel Bisulfate [Plavix] 75 mg PO DAILY@79905/04/21 09/10/21 Empagliflozin [Jardiance] 25 mg PO DAILY@79905/04/21 09/10/21 Isosorbide Mononitrate ER [Imdur] 30 mg PO DAILY@79905/04/21 09/10/21 Lactulose [Constulose] 10 gm PO BID@799,199905/04/21 09/10/21 Loratadine 10 mg PO DAILY@79905/04/21 09/10/21 Multivitamins, Thera [Multivitamin 1 tab PO DAILY@79905/04/21 09/10/21 (formulary)] Rifaximin [Xifaxan] 550 mg PO BID@799,199905/04/21 09/10/21 metFORMIN HCL 500 mg PO DAILY@79905/04/21 09/10/21 Ibuprofen [Motrin] 600 mg PO Q8H PRN 08/29/21 09/10/21 Cyclobenzaprine [Flexeril] 10 mg PO HS@199909/06/21 09/10/21 Omeprazole Magnesium [PriLOSEC OTC] 20 mg PO AC-BRKFST@72909/06/21 09/10/21 Atorvastatin Calcium [Lipitor] 40 mg PO HS@199909/07/21 09/10/21 Aspirin EC [Ecotrin Low Dose] 81 mg PO HS@199909/10/21 09/10/21 Lacosamide [Vimpat] 50 mg PO BID@799,199909/10/21 09/10/21 levETIRAcetam [Keppra] 500 mg PO BID@0800,199909/10/21 09/10/21 Previous Rx's Medication Instructions Recorded levETIRAcetam [Keppra] 1,000 mg PO BID@799,1999 #90 tab 08/31/21 Allergies Allergy/AdvReac Type Severity Reaction Status Date / Time Penicillins AdvReac Unknown Verified 09/10/21 13:46 Childhood Review of Systems ROS Statement: Those systems with pertinent positive or pertinent negative responses have been documented in the HPI. ROS Other: All systems not noted in ROS Statement are negative. Past Medical History Past Medical History: Diabetes Mellitus, Liver Disease, Myocardial Infarction ([place]) Additional Past Medical History / Comment(s): non-verbal, TBI, visually impaired Last Myocardial Infarction Date:: unknown History of Any Multi-Drug Resistant Organisms: None Reported Past Surgical History: Appendectomy, Orthopedic Surgery Additional Past Surgical History / Comment(s): brain, samson left leg, left leg cyst removal Past Anesthesia/Blood Transfusion Reactions: No Reported Reaction Past Psychological History: No Psychological Hx Reported Smoking Status: Former smoker Past Alcohol Use History: Unable to Obtain Past Drug Use History: Unable to Obtain General Exam - General Exam Comments Initial Comments: GENERAL: Patient is well-developed and well-nourished. Patient is nontoxic and well- hydrated and is in no acute distress. ENT: Neck is soft and supple. No significant lymphadenopathy is noted. Oropharynx is clear. Moist mucous membranes. Neck has full range of motion without eliciting any pain. EYES: The sclera were anicteric and conjunctiva were pink and moist. Extraocular movements were intact and pupils were equal round and reactive to light. Eyelids were unremarkable. PULMONARY: Unlabored respirations. Good breath sounds bilaterally. No audible rales rhonchi or wheezing was noted. CARDIOVASCULAR: There is a regular rate and rhythm without any murmurs gallops or rubs. ABDOMEN: Soft and nontender with normal bowel sounds. SKIN: Skin is clear with no lesions or rashes and otherwise unremarkable. NEUROLOGIC: Patient is alert and oriented unable to assess his orientation secondary to the fact the patient cannot speak clearly Cranial nerves II through XII are grossly intact. Motor and sensory are also intact. Speech is very mumbled but I'm told this is baseline. Symmetrical smile. MUSCULOSKELETAL: Normal extremities with adequate strength and full range of motion. LYMPHATICS: No significant lymphadenopathy is noted PSYCHIATRIC: Normal psychiatric evaluation. Limitations: language barrier, physical limitation Course Vital Signs 09/10/21 13:15 Temperature 98.2 F Pulse Rate 86 Respiratory 16 Rate Blood Pressure 128/74 O2 Sat by Pulse 94 L Oximetry Medical Decision Making - Medical Decision Making Patient received Keppra thousand milligrams IV piggyback in the emergency department. I spoke with Dr. Lundberg as he wanted the patient to increase his finger pad and then the patient follow-up with his neurologist tomorrow with an already scheduled appointment. Patient will increase is a pack to 100 mg twice a day. - Lab Data Result diagrams: 09/10/21 13:43 09/10/21 13:43 Lab Results 09/10/21 09/10/21 09/10/21 Range/Units 13:43 13:43 13:43 WBC 4.5 (3.8-10.6) k/uL RBC 4.67 (4.30-5.90) m/uL Hgb 12.9 L (13.0-17.5) gm/dL Hct 38.8 L (39.0-53.0) % MCV 83.0 (80.0-100.0) fL MCH 27.6 (25.0-35.0) pg MCHC 33.3 (31.0-37.0) g/dL RDW 13.5 (11.5-15.5) % Plt Count 156 (150-450) k/uL MPV 8.0 Neutrophils % 56 % Lymphocytes % 27 % Monocytes % 10 % Eosinophils % 5 % Basophils % 1 % Neutrophils # 2.5 (1.3-7.7) k/uL Lymphocytes # 1.2 (1.0-4.8) k/uL Monocytes # 0.4 (0-1.0) k/uL Eosinophils # 0.2 (0-0.7) k/uL Basophils # 0.0 (0-0.2) k/uL Sodium 140 (137-145) mmol/L Potassium 4.1 (3.5-5.1) mmol/L Chloride 111 H (98-107) mmol/L Carbon Dioxide 23 (22-30) mmol/L Anion Gap 6 mmol/L BUN 20 (9-20) mg/dL Creatinine 0.63 L (0.66-1.25) mg/dL Est GFR (CKD-EPI)AfAm >90 (>60 ml/min/1.73 sqM) Est GFR (CKD-EPI)NonAf >90 (>60 ml/min/1.73 sqM) Glucose 160 H (74-99) mg/dL Calcium 8.4 (8.4-10.2) mg/dL Total Bilirubin 0.5 (0.2-1.3) mg/dL AST 21 (17-59) U/L ALT 13 (4-49) U/L Alkaline Phosphatase 46 (38-126) U/L Total Protein 6.8 (6.3-8.2) g/dL Albumin 4.1 (3.5-5.0) g/dL Urine Color Yellow Urine Appearance Clear (Clear) Urine pH 6.0 (5.0-8.0) Ur Specific [place] 1.050 H (1.001-1.035) Urine Protein Negative (Negative) Urine Glucose (UA) 4+ H (Negative) Urine Ketones Negative (Negative) Urine Blood Negative (Negative) Urine Nitrite Negative (Negative) Urine Bilirubin Negative (Negative) Urine Urobilinogen <2.0 (<2.0) mg/dL Ur Leukocyte Esterase Negative (Negative) Disposition Clinical Impression: Generalized seizure Disposition: HOME SELF-CARE Instructions (If sedation given, give patient instructions): Seizure/Epilepsy Discharge Instructions & Follow-Up Additional Instructions: Patient should increase his Vimpat to 100 mg twice a day. Patient should keep his appointment with Dr. cortes tomorrow Is patient prescribed a controlled substance at d/c from ED?: No Referrals: Alberto England MD [Primary Care Provider] - 1-2 days Time of Disposition: 15:19
[2021-09-10 14:02] LABS: Basophils % (A) 1 %; Eosinophils # (A) 0.2 k/uL (0-0.7); Eosinophils % (A) 5 %; HCT 38.8 % (39.0-53.0); HGB 12.9 gm/dL (13.0-17.5); Lymphocytes # (A) 1.2 k/uL (1.0-4.8); Lymphocytes % (A) 27 %; MCH 27.6 pg (25.0-35.0); MCHC 33.3 g/dL (31.0-37.0); Monocytes # (A) 0.4 k/uL (0-1.0); Monocytes % (A) 10 %; Neutrophils # (A) 2.5 k/uL (1.3-7.7); Neutrophils % (A) 56 %; Platelet Count 156 k/uL (150-450); RBC 4.67 m/uL (4.30-5.90); RDW 13.5 % (11.5-15.5); WBC 4.5 k/uL (3.8-10.6)
[2021-09-10 14:12] LABS: ALT 13 U/L (4-49); AST 21 U/L (17-59); African American GFR (CKD) >90 (>60 ml/min/1.73 sqM); Albumin 4.1 g/dL (3.5-5.0); Alkaline Phosphatase 46 U/L (38-126); Anion Gap 6 mmol/L; Blood Urea Nitrogen 20 mg/dL (9-20); Calcium 8.4 mg/dL (8.4-10.2); Carbon Dioxide 23 mmol/L (22-30); Chloride 111 mmol/L (98-107); Glucose 160 mg/dL (74-99); Non-African American GFR(CKD) >90 (>60 ml/min/1.73 sqM); Potassium 4.1 mmol/L (3.5-5.1); Sodium 140 mmol/L (137-145); Total Bilirubin 0.5 mg/dL (0.2-1.3); Total Protein 6.8 g/dL (6.3-8.2)
[2021-09-10 14:40] LABS: Appearance,Urine Clear (Clear); Bilirubin,Urine Negative (Negative); Blood,Urine Negative (Negative); Color,Urine Yellow; Glucose,Urine (UA) 4+ (Negative); Ketones,Urine Negative (Negative); Leukocyte Esterase,Urine Negative (Negative); Nitrite,Urine Negative (Negative); Protein,Urine Negative (Negative); Urobilinogen,Urine <2.0 mg/dL (<2.0)
[2021-09-10] MEDS ORDERED: levETIRAcetam IV 1,000 MG in SALINE 1 100ML.BAG IVPB STA (15:06)
[2021-09-10 16:30] VITALS: BP 128/70; PULSE 88; RESP 18; TEMP 98.4
== END 2021-09-10 16:29 | disposition home or self-care (01) ==
LOC: EC 13:12
DX: R56.9 Unspecified convulsions (principal); E11.9 Type 2 diabetes mellitus without complications; I25.2 Old myocardial infarction; Z87.891 Personal history of nicotine dependence; Z88.0 Allergy status to penicillin
CPT/HCPCS: 36415; 80053; 80177; 85025; 81003; 99284; 96374; J1953

== ENCOUNTER 2021-09-15 11:40 | Inpatient (IN) | payer MEDICARE ==
[2021-09-15] MEDS ORDERED: levETIRAcetam IV 1,000 MG in SALINE 1 100ML.BAG IVPB STA (11:51)
[2021-09-15 12:29] LABS: Appearance,Urine Clear (Clear); Basophils % (A) 1 %; Bilirubin,Urine Negative (Negative); Blood,Urine Negative (Negative); Color,Urine Yellow; Eosinophils # (A) 0.2 k/uL (0-0.7); Eosinophils % (A) 5 %; Glucose,Urine (UA) 4+ (Negative); HGB 13.3 gm/dL (13.0-17.5); Ketones,Urine Negative (Negative); Leukocyte Esterase,Urine Negative (Negative); Lymphocytes # (A) 1.2 k/uL (1.0-4.8); Lymphocytes % (A) 28 %; MCH 27.8 pg (25.0-35.0); MCHC 33.3 g/dL (31.0-37.0); MCV 83.7 fL (80.0-100.0); Mean Platelet Volume 8.9; Monocytes # (A) 0.5 k/uL (0-1.0); Monocytes % (A) 11 %; Neutrophils # (A) 2.2 k/uL (1.3-7.7); Neutrophils % (A) 52 %; Nitrite,Urine Negative (Negative); PH, Urine 5.5 (5.0-8.0); Platelet Count 144 k/uL (150-450); Protein,Urine Negative (Negative); RBC 4.78 m/uL (4.30-5.90); RDW 13.8 % (11.5-15.5); Specific Gravity,Urine 1.037 (1.001-1.035); Urobilinogen,Urine <2.0 mg/dL (<2.0); WBC 4.2 k/uL (3.8-10.6)
[2021-09-15 12:32] LABS: ALT 18 U/L (4-49); AST 29 U/L (17-59); African American GFR (CKD) >90 (>60 ml/min/1.73 sqM); Albumin 4.1 g/dL (3.5-5.0); Alkaline Phosphatase 51 U/L (38-126); Anion Gap 8 mmol/L; Blood Urea Nitrogen 17 mg/dL (9-20); Calcium 8.9 mg/dL (8.4-10.2); Carbon Dioxide 24 mmol/L (22-30); Chloride 105 mmol/L (98-107); Glucose 206 mg/dL (74-99); Non-African American GFR(CKD) >90 (>60 ml/min/1.73 sqM); Potassium 3.9 mmol/L (3.5-5.1); Sodium 137 mmol/L (137-145); Total Bilirubin 0.4 mg/dL (0.2-1.3); Total Protein 6.7 g/dL (6.3-8.2)
--- NOTE | 2021-09-15 13:06 | ED ---
General Adult HPI - General Chief complaint: Seizure Stated complaint: seizure Time Seen by Provider: 09/15/21 11:45 Source: patient, EMS, RN notes reviewed, old records reviewed Mode of arrival: EMS - History of Present Illness Initial comments: This is a 65-year-old male who presents emergency Department after having had a seizure. Patient has long-standing history of seizures. Patient is on Keppra. Patient is been to the emergency department 4 times in the last month for similar. I reviewed the admission patient has a lower than expected Keppra level. No one is with the patient currently give any further history but there is no history of any recent illness. - Related Data Home Medications Medication Instructions Recorded Confirmed Clopidogrel Bisulfate [Plavix] 75 mg PO DAILY@79905/04/21 09/10/21 Empagliflozin [Jardiance] 25 mg PO DAILY@79905/04/21 09/10/21 Isosorbide Mononitrate ER [Imdur] 30 mg PO DAILY@79905/04/21 09/10/21 Lactulose [Constulose] 10 gm PO BID@799,199905/04/21 09/10/21 Loratadine 10 mg PO DAILY@79905/04/21 09/10/21 Multivitamins, Thera [Multivitamin 1 tab PO DAILY@79905/04/21 09/10/21 (formulary)] Rifaximin [Xifaxan] 550 mg PO BID@08,199905/04/21 09/10/21 metFORMIN HCL 500 mg PO DAILY@79905/04/21 09/10/21 Ibuprofen [Motrin] 600 mg PO Q8H PRN 08/29/21 09/10/21 Cyclobenzaprine [Flexeril] 10 mg PO HS@199909/06/21 09/10/21 Omeprazole Magnesium [PriLOSEC OTC] 20 mg PO AC-BRKFST@72909/06/21 09/10/21 Atorvastatin Calcium [Lipitor] 40 mg PO HS@199909/07/21 09/10/21 Aspirin EC [Ecotrin Low Dose] 81 mg PO HS@199909/10/21 09/10/21 Lacosamide [Vimpat] 50 mg PO BID@08,199909/10/21 09/10/21 levETIRAcetam [Keppra] 500 mg PO BID@08,199909/10/21 09/10/21 Previous Rx's Medication Instructions Recorded levETIRAcetam [Keppra] 1,000 mg PO BID@799,1999 #90 tab 08/31/21 Allergies Allergy/AdvReac Type Severity Reaction Status Date / Time Penicillins AdvReac Unknown Verified 09/15/21 11:45 Childhood Review of Systems ROS Statement: Those systems with pertinent positive or pertinent negative responses have been documented in the HPI. ROS Other: All systems not noted in ROS Statement are negative. Past Medical History Past Medical History: Diabetes Mellitus, Liver Disease, Myocardial Infarction ([place]) Additional Past Medical History / Comment(s): non-verbal, TBI, visually impaired Last Myocardial Infarction Date:: unknown History of Any Multi-Drug Resistant Organisms: None Reported Past Surgical History: Appendectomy, Orthopedic Surgery Additional Past Surgical History / Comment(s): brain, samson left leg, left leg cyst removal Past Anesthesia/Blood Transfusion Reactions: No Reported Reaction Past Psychological History: No Psychological Hx Reported Smoking Status: Former smoker Past Alcohol Use History: Unable to Obtain Past Drug Use History: Unable to Obtain General Exam - General Exam Comments Initial Comments: GENERAL: Patient is well-developed and well-nourished. Patient is nontoxic and well- hydrated and is in no acute distress. ENT: Neck is soft and supple. No significant lymphadenopathy is noted. Oropharynx is clear. Moist mucous membranes. Neck has full range of motion without eliciting any pain. EYES: The sclera were anicteric and conjunctiva were pink and moist. Extraocular movements were intact and pupils were equal round and reactive to light. Eyelids were unremarkable. PULMONARY: Unlabored respirations. Good breath sounds bilaterally. No audible rales rhonchi or wheezing was noted. CARDIOVASCULAR: There is a regular rate and rhythm without any murmurs gallops or rubs. ABDOMEN: Soft and nontender with normal bowel sounds. SKIN: Skin is clear with no lesions or rashes and otherwise unremarkable. NEUROLOGIC: Patient is awake but not oriented at all. LYMPHATICS: No significant lymphadenopathy is noted PSYCHIATRIC: Unable to evaluate Course Vital Signs 09/15/21 09/15/21 11:41 12:53 Temperature 98.4 F Pulse Rate 101 H 84 Respiratory 16 16 Rate Blood Pressure 137/92 118/76 O2 Sat by Pulse 96 93 L Oximetry Medical Decision Making - Medical Decision Making I spoke with the [facility] agreed to admit the patient admitted the patient wrote admitting orders. I spoke with Dr. Lundberg he agreed the patient should be admitted for further evaluation. Patient's EKG shows sinus rhythm at 89 bpm SD interval is 202 QRS is 94 QT interval 349 QTC is 396. Patient's EKG shows no ST segment elevation or depression. - Lab Data Result diagrams: 09/15/21 12:14 09/15/21 12:14 Lab Results 09/15/21 09/15/21 09/15/21 Range/Units 12:14 12:14 12:14 WBC 4.2 (3.8-10.6) k/uL RBC 4.78 (4.30-5.90) m/uL Hgb 13.3 (13.0-17.5) gm/dL Hct 40.0 (39.0-53.0) % MCV 83.7 (80.0-100.0) fL MCH 27.8 (25.0-35.0) pg MCHC 33.3 (31.0-37.0) g/dL RDW 13.8 (11.5-15.5) % Plt Count 144 L (150-450) k/uL MPV 8.9 Neutrophils % 52 % Lymphocytes % 28 % Monocytes % 11 % Eosinophils % 5 % Basophils % 1 % Neutrophils # 2.2 (1.3-7.7) k/uL Lymphocytes # 1.2 (1.0-4.8) k/uL Monocytes # 0.5 (0-1.0) k/uL Eosinophils # 0.2 (0-0.7) k/uL Basophils # 0.0 (0-0.2) k/uL Sodium 137 (137-145) mmol/L Potassium 3.9 (3.5-5.1) mmol/L Chloride 105 (98-107) mmol/L Carbon Dioxide 24 (22-30) mmol/L Anion Gap 8 mmol/L BUN 17 (9-20) mg/dL Creatinine 0.55 L (0.66-1.25) mg/dL Est GFR (CKD-EPI)AfAm >90 (>60 ml/min/1.73 sqM) Est GFR (CKD-EPI)NonAf >90 (>60 ml/min/1.73 sqM) Glucose 206 H (74-99) mg/dL Calcium 8.9 (8.4-10.2) mg/dL Total Bilirubin 0.4 (0.2-1.3) mg/dL AST 29 (17-59) U/L ALT 18 (4-49) U/L Alkaline Phosphatase 51 (38-126) U/L Total Protein 6.7 (6.3-8.2) g/dL Albumin 4.1 (3.5-5.0) g/dL Urine Color Yellow Urine Appearance Clear (Clear) Urine pH 5.5 (5.0-8.0) Ur Specific [place] 1.037 H (1.001-1.035) Urine Protein Negative (Negative) Urine Glucose (UA) 4+ H (Negative) Urine Ketones Negative (Negative) Urine Blood Negative (Negative) Urine Nitrite Negative (Negative) Urine Bilirubin Negative (Negative) Urine Urobilinogen <2.0 (<2.0) mg/dL Ur Leukocyte Esterase Negative (Negative) Disposition Clinical Impression: Recurrent seizures Disposition: ADMITTED IP TO THIS HOSP Referrals: Alberto England MD [Primary Care Provider] - 1-2 days Time of Disposition: 13:04
[2021-09-15] MEDS ORDERED: SODIUM CHLORIDE 0.9% 1,000 ML IV ONE (13:29)
[2021-09-15] MEDS ORDERED: MAGNESIUM HYDROXIDE 2,400 MG/10 ML CUP PO PRN (14:13)
[2021-09-15] MEDS ORDERED: [UNRECOGNIZED DRUG - OTHER] PO PRN (14:13)
[2021-09-15] MEDS ORDERED: NON FORMULARY DRUG (Levetiracetam [Keppra] 1,000 MG Tablet) PO SCH (20:00)
[2021-09-15] MEDS ORDERED: NON FORMULARY DRUG (Lacosamide [Vimpat] 100 MG Tablet) PO SCH (20:00)
[2021-09-15] MEDS ORDERED: LACOSAMIDE IV 100 MG in SODIUM CHLORIDE 0.9% 50 ML IVPB SCH (21:00)
[2021-09-15] MEDS: ATORVASTATIN 40 MG TAB PO SCH (21:12)
[2021-09-15] MEDS: ASPIRIN 81 MG PO SCH (21:12)
[2021-09-15] MEDS: levETIRAcetam IV 1,500 MG in SALINE 1 100ML.BAG IVPB SCH (21:12)
[2021-09-15] MEDS: RIFAXIMIN 550 MG TABLET PO SCH (21:12)
[2021-09-15] MEDS: CYCLOBENZAPRINE 10 MG TAB PO SCH (21:13)
[2021-09-15] MEDS ORDERED: LACOSAMIDE 50 MG TABLET PO SCH (22:15)
[2021-09-15] MEDS: LORazepam 2 MG/ML INJ IV PRN (22:16)
--- NOTE | 2021-09-16 07:35 | P.HPIM ---
History of Present Illness H&P Date: 09/15/21 Chief Complaint: Breakthrough seizures 65-year-old male who presents emergency Department after having had a seizure. Patient has long-standing history of seizures. Patient is on Keppra. Patient is been to the emergency department 4 times in the last month for similar. I reviewed the admission patient has a lower than expected Keppra level. No one is with the patient currently give any further history but there is no history of any recent illness. EKG shows sinus rhythm at 89 bpm MI interval is 202 QRS is 94 QT interval 349 QTC is 396. Patient's EKG shows no ST segment elevation or depression. Blood work reveals did receive 4.2, hemoglobin of 13.3, hematocrit 144, sodium 137, potassium 3.9, BUN/creatinine of 17/0.55 and blood glucose of 206 Review of Systems REVIEW OF SYSTEMS: CONSTITUTIONAL: No fever, no malaise, no fatigue. HEENT: No recent visual problems or hearing problems. Denied any sore throat. CARDIOVASCULAR: No chest pain, orthopnea, PND, no palpitations, no syncope. PULMONARY: No shortness of breath, no cough, no hemoptysis. GASTROINTESTINAL: No diarrhea, no nausea, no vomiting, no abdominal pain. NEUROLOGICAL: No headaches, no weakness, no numbness. HEMATOLOGICAL: Denies any bleeding or petechiae. GENITOURINARY: Denies any burning micturition, frequency, or urgency. MUSCULOSKELETAL/RHEUMATOLOGICAL: Denies any joint pain, swelling, or any muscle pain. ENDOCRINE: Denies any polyuria or polydipsia. The rest of the 14-point review of systems is negative. Past Medical History Past Medical History: Diabetes Mellitus, Liver Disease, Myocardial Infarction ([place]) Additional Past Medical History / Comment(s): non-verbal, TBI, visually impaired Last Myocardial Infarction Date:: unknown History of Any Multi-Drug Resistant Organisms: None Reported Past Surgical History: Appendectomy, Orthopedic Surgery Additional Past Surgical History / Comment(s): brain, samson left leg, left leg cyst removal Past Anesthesia/Blood Transfusion Reactions: No Reported Reaction Past Psychological History: No Psychological Hx Reported Smoking Status: Former smoker Past Alcohol Use History: Unable to Obtain Past Drug Use History: Unable to Obtain Medications and Allergies Home Medications Medication Instructions Recorded Confirmed Type Clopidogrel Bisulfate [Plavix] 75 mg PO DAILY@0800 05/04/21 09/15/21 History Empagliflozin [Jardiance] 25 mg PO DAILY@79905/04/21 09/15/21 History Isosorbide Mononitrate ER [Imdur] 30 mg PO DAILY@79905/04/21 09/15/21 History Lactulose [Constulose] 10 gm PO DAILY@79905/04/21 09/15/21 History Loratadine 10 mg PO DAILY@79905/04/21 09/15/21 History Multivitamins, Thera [Multivitamin 1 tab PO DAILY@79905/04/21 09/15/21 History (formulary)] Rifaximin [Xifaxan] 550 mg PO BID@799,199905/04/21 09/15/21 History metFORMIN HCL 500 mg PO DAILY@79905/04/21 09/15/21 History Ibuprofen [Motrin] 600 mg PO Q8H PRN 08/29/21 09/15/21 History levETIRAcetam [Keppra] 1,000 mg PO BID@799,1999 #90 tab 08/31/21 09/15/21 Rx Cyclobenzaprine [Flexeril] 10 mg PO HS@199909/06/21 09/15/21 History Omeprazole Magnesium [PriLOSEC OTC] 20 mg PO AC-BRKFST@72909/06/21 09/15/21 History Atorvastatin Calcium [Lipitor] 40 mg PO HS@199909/07/21 09/15/21 History Aspirin EC [Ecotrin Low Dose] 81 mg PO HS@199909/10/21 09/15/21 History levETIRAcetam [Keppra] 500 mg PO BID@09/10/21 09/15/21 History Acetaminophen Tab [Tylenol] 650 mg PO Q4H PRN 09/15/21 09/15/21 History N[place] 15 ml PO BID PRN 09/15/21 09/15/21 History Kaolin Pectin 30 ml PO DAILY PRN 09/15/21 09/15/21 History Lacosamide [Vimpat] 100 mg PO BID@799,199909/15/21 09/15/21 History Magnesium Hydroxide [Milk of 2,400 mg PO Q48H PRN 09/15/21 09/15/21 History Magnesia] Metoprolol Succinate [Toprol XL] 50 mg PO DAILY@0800 09/15/21 09/15/21 History guaiFENesin SYRUP 100MG/5ML 1 dose PO Q6H PRN 09/15/21 09/15/21 History [Robitussin] Allergies Allergy/AdvReac Type Severity Reaction Status Date / Time Penicillins AdvReac Unknown Verified 09/15/21 13:57 Childhood Physical Exam Vitals: Vital Signs Temp Pulse Resp BP Pulse Ox 09/15/21 12:53 84 16 118/76 93 L 09/15/21 11:41 98.4 F 101 H 16 137/92 96 Intake and Output 09/14/21 09/15/21 09/15/21 22:59 06:59 14:59 Other: Weight 81.647 kg PHYSICAL EXAMINATION: GENERAL: The patient is alert and oriented x3, not in any acute distress. Well developed, well nourished. HEENT: Pupils are round and equally reacting to light. EOMI. No scleral icterus. No conjunctival pallor. Normocephalic, atraumatic. No pharyngeal erythema. No thyromegaly. CARDIOVASCULAR: S1 and S2 present. No murmurs, rubs, or gallops. PULMONARY: Chest is clear to auscultation, no wheezing or crackles. ABDOMEN: Soft, nontender, nondistended, normoactive bowel sounds. No palpable organomegaly. MUSCULOSKELETAL: No joint swelling or deformity. EXTREMITIES: No cyanosis, clubbing, or pedal edema. NEUROLOGICAL: Gross neurological examination did not reveal any focal deficits. SKIN: No rashes. Results CBC & Chem 7: 09/15/21 12:14 09/15/21 12:14 Labs: Abnormal Lab Results - Last 24 Hours (Table) 09/15/21 09/15/21 09/15/21 Range/Units 12:14 12:14 12:14 Plt Count 144 L (150-450) k/uL Creatinine 0.55 L (0.66-1.25) mg/dL Glucose 206 H (74-99) mg/dL Ur Specific [place] 1.037 H (1.001-1.035) Urine Glucose (UA) 4+ H (Negative) Assessment and Plan Assessment: 1. Recurrent seizures; [facility]im[facility]; patient has had multiple episodes of recurrent seizures and compliance at prison is questioned; we will continue with current home medications and consult neurology for further recommendations of improved control of seizures 2. Hyperglycemia/diabetes mellitus type 2; patient takes Jardiance 25 mg daily and metformin 500 mg daily; we'll monitor Accu-Cheks every seen adjust with insulin sliding scale 3. Coronary artery disease; continue with Plavix, aspirin, statins and Imdur 4. Hypertension; Imdur 30 mg daily 5. Hyperlipidemia; Lipitor 40 mg by mouth daily at bedtime 6. Seasonal ALLERGIES; loratadine 10 mg daily 7. Chronic back pain; patient remains on Motrin 600 mg every 8 hours along with Flexeril 10 mg daily at bedtime 8. Liver cirrhosis; continue with lactulose 10 gm by mouth twice a day along with rifaximin 550 mg twice a day DVT prophylaxis; SCDs CODE STATUS; full code
[2021-09-16] MEDS: LACTULOSE 20 GM/30 ML CUP PO SCH (08:52)
[2021-09-16] MEDS: MULTIVITAMINS, THERA 1 EACH TAB PO SCH (08:52)
[2021-09-16] MEDS: LORATADINE 10 MG TAB PO SCH (08:53)
[2021-09-16] MEDS: ISOSORBIDE MONONITRATE ER 30 MG TAB.ER.24H PO SCH (08:53)
[2021-09-16] MEDS: CLOPIDOGREL 75 MG TAB PO SCH (08:53)
[2021-09-16] MEDS: metFORMIN 500 MG TAB PO SCH (08:53)
[2021-09-16] MEDS: METOPROLOL SUCCINATE (ER) 50 MG TAB.ER.24H PO SCH (08:53)
[2021-09-16] MEDS: PANTOPRAZOLE 40 MG TABLET PO SCH (08:53)
[2021-09-16] MEDS: RIFAXIMIN 550 MG TABLET PO SCH ×2 (08:54→20:41)
[2021-09-16] MEDS ORDERED: LACOSAMIDE 50 MG TABLET PO SCH (09:00)
[2021-09-16] MEDS: PATIENT'S OWN (Empagliflozin [Jardiance] 25 MG Tablet) PO SCH (09:13)
[2021-09-16] MEDS: levETIRAcetam IV 1,500 MG in SALINE 1 100ML.BAG IVPB SCH ×2 (10:15→21:23)
[2021-09-16 10:21] LABS: African American GFR (CKD) >90 (>60 ml/min/1.73 sqM); Anion Gap 10 mmol/L; Blood Urea Nitrogen 14 mg/dL (9-20); Calcium 9.2 mg/dL (8.4-10.2); Carbon Dioxide 24 mmol/L (22-30); Chloride 105 mmol/L (98-107); Glucose 246 mg/dL (74-99); Non-African American GFR(CKD) >90 (>60 ml/min/1.73 sqM); Sodium 139 mmol/L (137-145)
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
--- NOTE | 2021-09-16 15:22 | P.PN ---
Subjective Progress Note Date: 09/16/21 Principal diagnosis: Recurrent breakthrough seizures 65-year-old male who presents emergency Department after having had a seizure. Patient has long-standing history of seizures. Patient is on Keppra. Patient is been to the emergency department 4 times in the last month for similar. I reviewed the admission patient has a lower than expected Keppra level. No one is with the patient currently give any further history but there is no history of any recent illness. EKG shows sinus rhythm at 89 bpm AR interval is 202 QRS is 94 QT interval 349 QTC is 396. Patient's EKG shows no ST segment elevation or depression. Blood work reveals did receive 4.2, hemoglobin of 13.3, hematocrit 144, sodium 137, potassium 3.9, BUN/creatinine of 17/0.55 and blood glucose of 206 09/16/2021 Patient is seen and evaluated with sitter at bedside; patient is awake and alert and seems to be at baseline; no further reports of seizure activity since admission Patient has been evaluated by neurology; patient was recently started on Vimpat 50 mg twice a day which was later increased to 100 mg twice a day; neurology recommending to increase in back up to 150 mg twice a day and continue with Keppra 1500 mg twice a day Patient to follow-up with neurology in 2-4 weeks Patient's family considering transfer patient to a different facility; case management is consulted Objective - Vital Signs Vital signs: Vital Signs Temp 97.7 F 09/16/21 07:00 Pulse 75 09/16/21 07:00 Resp 16 09/16/21 07:00 BP 154/90 09/16/21 07:00 Pulse Ox 94 L 09/16/21 07:00 FiO2 Intake & Output 09/15/21 09/16/21 09/16/21 18:59 06:59 18:59 Output Total 500 575 Balance -500 -575 Weight 81.647 kg Output: Urine 500 575 Other: # Voids 3 - Exam PHYSICAL EXAMINATION: GENERAL: The patient is alert and oriented x3, not in any acute distress. Well developed, well nourished. HEENT: Pupils are round and equally reacting to light. EOMI. No scleral icterus. No conjunctival pallor. Normocephalic, atraumatic. No pharyngeal erythema. No thyromegaly. CARDIOVASCULAR: S1 and S2 present. No murmurs, rubs, or gallops. PULMONARY: Chest is clear to auscultation, no wheezing or crackles. ABDOMEN: Soft, nontender, nondistended, normoactive bowel sounds. No palpable organomegaly. MUSCULOSKELETAL: No joint swelling or deformity. EXTREMITIES: No cyanosis, clubbing, or pedal edema. NEUROLOGICAL: Gross neurological examination did not reveal any focal deficits. SKIN: No rashes. - Labs CBC & Chem 7: 09/15/21 12:14 09/16/21 09:26 Labs: Abnormal Lab Results - Last 24 Hours (Table) 09/15/21 09/15/21 09/15/21 Range/Units 12:14 12:14 12:14 Plt Count 144 L (150-450) k/uL Creatinine 0.55 L (0.66-1.25) mg/dL Glucose 206 H (74-99) mg/dL Ur Specific [place] 1.037 H (1.001-1.035) Urine Glucose (UA) 4+ H (Negative) Assessment and Plan Assessment: 1. Recurrent seizures; patient [facility]; patient has had multiple episodes of recurrent seizures and compliance at [facility] is questioned; we will continue with current home medications and consult neurology for further recommendations of improved control of seizures 2. Hyperglycemia/diabetes mellitus type 2; patient takes Jardiance 25 mg daily and metformin 500 mg daily; we'll monitor Accu-Cheks every seen adjust with insulin sliding scale 3. Coronary artery disease; continue with Plavix, aspirin, statins and Imdur 4. Hypertension; Imdur 30 mg daily 5. Hyperlipidemia; Lipitor 40 mg by mouth daily at bedtime 6. Seasonal ALLERGIES; loratadine 10 mg daily 7. Chronic back pain; patient remains on Motrin 600 mg every 8 hours along with Flexeril 10 mg daily at bedtime 8. Liver cirrhosis; continue with lactulose 10 gm by mouth twice a day along with rifaximin 550 mg twice a day DVT prophylaxis; SCDs CODE STATUS; full code
[2021-09-16] MEDS: ASPIRIN 81 MG PO SCH (20:30)
[2021-09-16] MEDS: ATORVASTATIN 40 MG TAB PO SCH (20:30)
[2021-09-16] MEDS: CYCLOBENZAPRINE 10 MG TAB PO SCH (20:30)
[2021-09-16] MEDS: LACOSAMIDE 50 MG TABLET PO SCH (20:30)
[2021-09-16] MEDS: LORazepam 2 MG/ML INJ IV PRN (22:49)
[2021-09-17 03:08] VITALS: TEMP 97.6
[2021-09-17 08:51] VITALS: RESP 20
[2021-09-17] MEDS: PATIENT'S OWN (Empagliflozin [Jardiance] 25 MG Tablet) PO SCH (09:15)
[2021-09-17 09:16] LABS: Basophils # (A) 0.04 X 10*3/uL (0.00-0.10); Basophils % (A) 0.6 %; Eosinophils # (A) 0.32 X 10*3/uL (0.04-0.35); HCT 40.2 % (39.6-50.0); HGB 13.1 g/dL (13.0-17.0); Immature Grans, Automated 0.2 %; Lymphocytes # (A) 1.89 X 10*3/uL (0.90-5.00); Lymphocytes % (A) 29.6 %; MCH 27.1 pg (27.0-32.0); MCHC 32.6 g/dL (32.0-37.0); MCV 83.2 fL (80.0-97.0); Monocytes # (A) 0.74 X 10*3/uL (0.20-1.00); Monocytes % (A) 11.6 %; NRBC Per 100 WBC 0 /100 WBCS (0.0-0.0); Neutrophils # (A) 3.38 X 10*3/uL (1.80-7.70); Platelet Count 145 X 10*3/uL (140-440); RBC 4.83 X 10*6/uL (4.40-5.60); RDW 13.3 % (11.5-14.5); WBC 6.38 X 10*3/uL (4.50-10.00)
[2021-09-17] MEDS: LACTULOSE 20 GM/30 ML CUP PO SCH (09:16)
[2021-09-17] MEDS: levETIRAcetam IV 1,500 MG in SALINE 1 100ML.BAG IVPB SCH (09:16)
[2021-09-17] MEDS: CLOPIDOGREL 75 MG TAB PO SCH (09:17)
[2021-09-17] MEDS: PANTOPRAZOLE 40 MG TABLET PO SCH (09:17)
[2021-09-17] MEDS: METOPROLOL SUCCINATE (ER) 50 MG TAB.ER.24H PO SCH (09:17)
[2021-09-17] MEDS: LORATADINE 10 MG TAB PO SCH (09:17)
[2021-09-17] MEDS: ISOSORBIDE MONONITRATE ER 30 MG TAB.ER.24H PO SCH (09:17)
[2021-09-17] MEDS: RIFAXIMIN 550 MG TABLET PO SCH (09:17)
[2021-09-17] MEDS: MULTIVITAMINS, THERA 1 EACH TAB PO SCH (09:17)
[2021-09-17] MEDS: metFORMIN 500 MG TAB PO SCH (09:17)
[2021-09-17] MEDS ORDERED: LACOSAMIDE 50 MG TABLET PO SCH (10:30)
[2021-09-17] MEDS: LACOSAMIDE 50 MG TABLET PO SCH (10:43)
[2021-09-17 11:13] LABS: African American GFR (CKD) 116.4 (60.0-200.0); Albumin 4.2 g/dL (3.8-4.9); Albumin/Globulin Ratio 1.75 (1.60-3.17); Anion Gap 14.2 mmol/L (10.00-18.00); BUN/Creat Ratio 21.57 Ratio (12.00-20.00); Blood Urea Nitrogen 15.1 mg/dL (9.0-27.0); Carbon Dioxide 19.8 mmol/L (20.0-27.5); Globulin 2.4 g/dL (1.6-3.3); Non-African American GFR(CKD) 100.4 (60.0-200.0); Potassium 4.2 mmol/L (3.5-5.5); Total Bilirubin 0.4 mg/dL (0.30-1.20); Total Protein 6.6 g/dL (6.2-8.2)
[2021-09-17 14:14] VITALS: BP 131/75; PULSE 89
--- NOTE | 2021-09-17 22:27 | EEG ---
ELECTROENCEPHALOGRAM REPORT PREAMBLE: This is a 65-year-old male with recurrent seizures. The patient has history of traumatic brain injury. EEG FINDINGS: This is a 21-channel digital EEG recorded with video component, utilizing 10/20 international system with referential and bipolar montages. Background consists of well developed, well regulated moderate voltage activity in 9 to 10 Hz alpha. Background is posterior dominant and reactive to eye opening and closing. Photic stimulation was not performed. Some drowsiness was seen with appearance of bilaterally symmetric theta frequency rhythm. Brief stage 2 sleep was seen with presence of sleep spindles. No focal or generalized epileptiform activity was seen. EKG channel showed no obvious arrhythmia. IMPRESSION: This is a normal EEG during wakefulness, drowsiness, and brief stage 2 sleep. No focal, lateralized, or epileptiform activity was seen. MMODL / IJN: [id number] /
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
--- NOTE | 2021-09-19 10:39 | P.DS ---
Providers Date of admission: 09/17/21 09:27 Expected date of discharge: 09/17/21 Attending physician: Isabella Bagley Consults: 09/15/21 13:29 Consult Physician Urgent Consulting Provider: Tejinder Lundberg Consult Reason/Comments: Recurrent seizures Do you want consulting provider notified?: Yes Primary care physician: Alberto England [facility] Course: Final diagnosis Recurrent seizures Diabetes mellitus type 2, uncontrolled with Hyperglycemia Coronary artery disease Hypertension Hyperlipidemia Seasonal ALLERGIES chronic back pain Liver cirrhosis DVT prophylaxis Full code Discharge disposition Patient is being discharged in a stable condition with guarded prognosis to [facility] home. Patient will follow-up with Dr. England in the outpatient setting upon discharge. Patient is to also follow-up with his neurologist Dr. Vásquez on discharge. Patient is to continue with Keppra and also Vimpat at 100 mg twice daily and discuss further with neurology about medication adjustments and further testing outpatient. Total time taken is greater than 35 minutes. Hospital course This is a 65-year-old male who was recently admitted recurrent seizures and was maintained on Keppra and recently admitted and being titrated up on Vimpat. Neurology was evaluating the patient and recommend continue at Vimpat 100 mg twice a day along with Keppra and strongly encouraged follow-up with his neurologist Dr. Vásquez to discuss further testing outpatient. Patient is high risk for readmissions due to recurrent breakthrough seizures. Neurology discussed with mother that patient needs to follow-up with Dr. Vásquez to discuss outpatient testing or possible epilepsy monitoring at another facility. No further seizure-like activity noted. Patient is cleared by neurology for return back to [facility]. Currently no reports of chest pain, shortness of breath, or palpitations. Patient is afebrile. No reports of nausea or vomiting and patient is tolerating diet. Patient will be going to [facility] where he resides today. Guarded prognosis. Physical exam: Gen: This is a 65-year-old male awake and alert. HEENT: Head is atraumatic, normocephalic. Pupils equal, round. Sclerae is anicteric. NECK: Supple. No JVD. No lymphadenopathy. No thyromegaly. LUNGS: Clear to auscultation. No wheezes or rhonchi. No intercostal retractions. HEART: Regular rate and rhythm. No murmur. ABDOMEN: Soft. Bowel sounds are present. No masses. No tenderness. EXTREMITIES: No pedal edema. No calf tenderness. NEUROLOGICAL: Patient is awake, alert and oriented x3. Cranial nerves 2 through 12 are grossly intact. Please refer to medication reconciliation sheet for a list of medications. The impression and plan of care has been dictated by Lillian Gould, Nurse Practitioner as directed. Dr. Jorge MD I have performed a history and examination and MDM of this patient, discussed the same with the dictator, and agree with the dictator's assessment and plan as written ,documented as a scribe. Based on total visit time, I have performed more than 50% of the visit. Patient Condition at Discharge: Fair Plan - Discharge Summary Discharge Rx Participant: No New Discharge Prescriptions: Continue Lactulose [Constulose] 10 gm PO DAILY@0800 metFORMIN HCL 500 mg PO DAILY@0800 Loratadine 10 mg PO DAILY@0800 Omeprazole Magnesium [PriLOSEC OTC] 20 mg PO AC-BRKFST@0730 Aspirin EC [Ecotrin Low Dose] 81 mg PO HS@1999 levETIRAcetam [Keppra] 500 mg PO BID@ Magnesium Hydroxide [Milk of Magnesia] 2,400 mg PO Q48H PRN PRN Reason: Constipation Metoprolol Succinate [Toprol XL] 50 mg PO DAILY@0800 Lacosamide [Vimpat] 100 mg PO BID@799,1999 Nory-Lanta 15 ml PO BID PRN PRN Reason: Heartburn Empagliflozin [Jardiance] 25 mg PO DAILY@0800 Clopidogrel Bisulfate [Plavix] 75 mg PO DAILY@0800 Rifaximin [Xifaxan] 550 mg PO BID@ Multivitamins, Thera [Multivitamin (formulary)] 1 tab PO DAILY@0800 Isosorbide Mononitrate ER [Imdur] 30 mg PO DAILY@0800 Ibuprofen [Motrin] 600 mg PO Q8H PRN PRN Reason: Pain levETIRAcetam [Keppra] 1,000 mg PO BID@799,1999 #90 tab Cyclobenzaprine [Flexeril] 10 mg PO HS@1999 Atorvastatin Calcium [Lipitor] 40 mg PO HS@1999 guaiFENesin SYRUP 100MG/5ML [Robitussin] 1 dose PO Q6H PRN PRN Reason: Cough Acetaminophen Tab [Tylenol] 650 mg PO Q4H PRN PRN Reason: Headache Kaolin Pectin 30 ml PO DAILY PRN PRN Reason: Loose Stool Discharge Medication List Clopidogrel Bisulfate [Plavix] 75 mg PO DAILY@79905/04/21 [History] Empagliflozin [Jardiance] 25 mg PO DAILY@79905/04/21 [History] Isosorbide Mononitrate ER [Imdur] 30 mg PO DAILY@79905/04/21 [History] Lactulose [Constulose] 10 gm PO DAILY@79905/04/21 [History] Loratadine 10 mg PO DAILY@79905/04/21 [History] Multivitamins, Thera [Multivitamin (formulary)] 1 tab PO DAILY@79905/04/21 [History] Rifaximin [Xifaxan] 550 mg PO BID@799,199905/04/21 [History] metFORMIN HCL 500 mg PO DAILY@79905/04/21 [History] Ibuprofen [Motrin] 600 mg PO Q8H PRN 08/29/21 [History] levETIRAcetam [Keppra] 1,000 mg PO BID@799,1999 #90 tab 08/31/21 [Rx] Cyclobenzaprine [Flexeril] 10 mg PO HS@199909/06/21 [History] Omeprazole Magnesium [PriLOSEC OTC] 20 mg PO AC-BRKFST@72909/06/21 [History] Atorvastatin Calcium [Lipitor] 40 mg PO HS@199909/07/21 [History] Aspirin EC [Ecotrin Low Dose] 81 mg PO HS@199909/10/21 [History] levETIRAcetam [Keppra] 500 mg PO BID@799,199909/10/21 [History] Acetaminophen Tab [Tylenol] 650 mg PO Q4H PRN 09/15/21 [History] Nory-Lanta 15 ml PO BID PRN 09/15/21 [History] Kaolin Pectin 30 ml PO DAILY PRN 09/15/21 [History] Lacosamide [Vimpat] 100 mg PO BID@799,199909/15/21 [History] Magnesium Hydroxide [Milk of Magnesia] 2,400 mg PO Q48H PRN 09/15/21 [History] Metoprolol Succinate [Toprol XL] 50 mg PO DAILY@0800 09/15/21 [History] guaiFENesin SYRUP 100MG/5ML [Robitussin] 1 dose PO Q6H PRN 09/15/21 [History] Follow up Appointment(s)/Referral(s): Alberto England MD [Primary Care Provider] - 1-2 days Tejinder Vásquez MD [STAFF PHYSICIAN] - 1 Week Activity/Diet/Wound Care/Special Instructions: Patient is returning to [facility] Patient needs follow-up with neurologist Dr. Vásquez within the next week, discuss further testing outpatient or possible epilepsy center Continue taking Vimpat 100 mg twice daily Continue Keppra 1500 mg twice daily Follow-up primary care provider on discharge Continue current diet Discharge Disposition: TRANSFER TO SNF/ECF
== END 2021-09-17 16:34 | DRG 101 ==
LOC: EC 11:40 → 6NMEDSUR 13:38 → OBSVTOIN 09-17 09:27
PROVIDERS: ADMIT Hospitalist; ATTEND Hospitalist
DX: G40.909 Epilepsy, unspecified, not intractable, without status epilepticus (principal); E11.65 Type 2 diabetes mellitus with hyperglycemia; K72.90 Hepatic failure, unspecified without coma; E78.5 Hyperlipidemia, unspecified; G89.29 Other chronic pain; I10 Essential (primary) hypertension; I25.10 Atherosclerotic heart disease of native coronary artery without angina pectoris; I25.2 Old myocardial infarction; M54.9 Dorsalgia, unspecified; J30.2 Other seasonal allergic rhinitis; K74.60 Unspecified cirrhosis of liver; Z79.02 Long term (current) use of antithrombotics/antiplatelets; Z79.84 Long term (current) use of oral hypoglycemic drugs; Z79.899 Other long term (current) drug therapy; Z87.820 Personal history of traumatic brain injury; Z87.891 Personal history of nicotine dependence
CPT/HCPCS: 36415; 80048; 80053; 80177; 80235; 81003; 82140; 84146; 85025; 93005; 95816; 96374; 99285

== ENCOUNTER 2021-11-27 15:18 | Emergency (ER) | payer MEDICARE, OTHER ==
[2021-11-27 15:43] VITALS: BP 134/80; PULSE 85; RESP 20; TEMP 98.1
--- NOTE | 2021-11-27 17:28 | ED ---
Seizure HPI - General Chief Complaint: Seizure Stated Complaint: seizure activity Time Seen by Provider: 11/27/21 16:58 Source: patient Mode of arrival: EMS Limitations: no limitations, language barrier - History of Present Illness Initial Comments: This patient is a 66-year-old man with history of known seizure disorder who is here to have evaluation after having had a seizure today. The patient reportedly was lying on the couch at home with friend who was watching him. The patient reportedly told bystanders he was going to have a seizure and then lost consciousness, had shaking and then had no memory of the event or the period thereafter. Patient's last known seizure probably between 1 and 2 months ago, he reportedly was at a facility and it was unknown whether he was receiving his medications as scheduled then. He reportedly has been taking medications as scheduled now, being on Keppra and Vimpat. The patient reportedly back at his [facility] neurologic status. Denies any injury during seizure. MD Complaint: seizure -: hour(s) Description of Episode: loss of consciousness, tonic-clonic movement, post-event confusion -: second(s) Witnessed: yes - by bystander Trauma: No Seizure History: known seizure disorder Place: home Possible Precipitating Event: none Associated Symptoms: denies other symptoms Treatments Prior to Arrival: none - Related Data Home Medications Medication Instructions Recorded Confirmed Clopidogrel Bisulfate [Plavix] 75 mg PO DAILY@79905/04/21 11/27/21 Empagliflozin [Jardiance] 25 mg PO DAILY@79905/04/21 11/27/21 Isosorbide Mononitrate ER [Imdur] 30 mg PO DAILY@79905/04/21 11/27/21 Loratadine 10 mg PO DAILY@79905/04/21 11/27/21 Multivitamins, Thera [Multivitamin 1 tab PO DAILY@79905/04/21 11/27/21 (formulary)] Rifaximin [Xifaxan] 550 mg PO BID@05/04/21 11/27/21 metFORMIN HCL 500 mg PO DAILY@79905/04/21 11/27/21 Atorvastatin Calcium [Lipitor] 40 mg PO HS@199909/07/21 11/27/21 Aspirin EC [Ecotrin Low Dose] 81 mg PO DAILY@0809/10/21 11/27/21 Lacosamide [Vimpat] 100 mg PO BID@0800,199909/15/21 11/27/21 Metoprolol Succinate [Toprol XL] 50 mg PO DAILY@0800 09/15/21 11/27/21 levETIRAcetam [Keppra] 1,500 mg PO BID@0800,199909/22/21 11/27/21 Lacosamide [Vimpat] 50 mg PO BID@0800,199911/27/21 11/27/21 Omeprazole [PriLOSEC] 20 mg PO DAILY@0800 11/27/21 11/27/21 Allergies Allergy/AdvReac Type Severity Reaction Status Date / Time Penicillins AdvReac Unknown Verified 11/27/21 19:01 Childhood Review of Systems ROS Statement: Those systems with pertinent positive or pertinent negative responses have been documented in the HPI. ROS Other: All systems not noted in ROS Statement are negative. Constitutional: Denies: fever, weakness Eyes: Denies: vision change Respiratory: Denies: cough, dyspnea Cardiovascular: Denies: chest pain, palpitations Gastrointestinal: Denies: abdominal pain, vomiting, diarrhea Musculoskeletal: Denies: back pain Skin: Denies: rash Neurological: Denies: headache, weakness, numbness, confusion Past Medical History Past Medical History: Diabetes Mellitus, Liver Disease, Myocardial Infarction ([place]) Additional Past Medical History / Comment(s): non-verbal, TBI, visually impaired Last Myocardial Infarction Date:: unknown History of Any Multi-Drug Resistant Organisms: None Reported Past Surgical History: Appendectomy, Orthopedic Surgery Additional Past Surgical History / Comment(s): brain, samson left leg, left leg cyst removal Past Anesthesia/Blood Transfusion Reactions: No Reported Reaction Past Psychological History: No Psychological Hx Reported Smoking Status: Former smoker Past Alcohol Use History: Unable to Obtain Past Drug Use History: Unable to Obtain General Exam Limitations: no limitations, language barrier General appearance: alert, in no apparent distress Head exam: Present: atraumatic, normocephalic Eye exam: Present: normal appearance, PERRL, EOMI. Absent: scleral icterus, conjunctival injection ENT exam: Present: normal oropharynx Neck exam: Present: normal inspection, full ROM. Absent: tenderness Respiratory exam: Present: normal lung sounds bilaterally. Absent: respiratory distress, wheezes, rales, rhonchi, stridor Cardiovascular Exam: Present: regular rate, normal rhythm, normal heart sounds. Absent: systolic murmur, diastolic murmur, rubs, gallop GI/Abdominal exam: Present: soft. Absent: distended, tenderness, guarding, r ebound, rigid, mass Extremities exam: Present: normal inspection, normal capillary refill. Absent: pedal edema, calf tenderness Back exam: Present: normal inspection. Absent: CVA tenderness (R), CVA tenderness (L) Neurological exam: Present: alert, CN II-XII intact. Absent: motor sensory deficit Skin exam: Present: warm, dry, intact, normal color. Absent: rash Course Vital Signs 11/27/21 15:39 Temperature 98.1 F Pulse Rate 85 Respiratory 20 Rate Blood Pressure 134/80 O2 Sat by Pulse 95 Oximetry Medical Decision Making - Lab Data Result diagrams: 11/27/21 17:32 11/27/21 17:32 Lab Results 11/27/21 11/27/21 Range/Units 17:32 17:32 WBC 4.6 (3.8-10.6) k/uL RBC 5.01 (4.30-5.90) m/uL Hgb 13.8 (13.0-17.5) gm/dL Hct 41.3 (39.0-53.0) % MCV 82.3 (80.0-100.0) fL MCH 27.5 (25.0-35.0) pg MCHC 33.4 (31.0-37.0) g/dL RDW 14.0 (11.5-15.5) % Plt Count 141 L (150-450) k/uL MPV 9.3 Neutrophils % 56 % Lymphocytes % 29 % Monocytes % 8 % Eosinophils % 5 % Basophils % 1 % Neutrophils # 2.6 (1.3-7.7) k/uL Lymphocytes # 1.3 (1.0-4.8) k/uL Monocytes # 0.4 (0-1.0) k/uL Eosinophils # 0.2 (0-0.7) k/uL Basophils # 0.0 (0-0.2) k/uL Sodium 142 (137-145) mmol/L Potassium 4.0 (3.5-5.1) mmol/L Chloride 104 (98-107) mmol/L Carbon Dioxide 24 (22-30) mmol/L Anion Gap 14 mmol/L BUN 17 (9-20) mg/dL Creatinine 0.53 L (0.66-1.25) mg/dL Est GFR (CKD-EPI)AfAm >90 (>60 ml/min/1.73 sqM) Est GFR (CKD-EPI)NonAf >90 (>60 ml/min/1.73 sqM) Glucose 119 H (74-99) mg/dL Calcium 9.1 (8.4-10.2) mg/dL Magnesium 2.1 (1.6-2.3) mg/dL Total Bilirubin 0.5 (0.2-1.3) mg/dL AST 24 (17-59) U/L ALT 18 (4-49) U/L Alkaline Phosphatase 47 (38-126) U/L Total Protein 7.4 (6.3-8.2) g/dL Albumin 4.7 (3.5-5.0) g/dL Disposition Clinical Impression: Recurrent seizures Disposition: HOME SELF-CARE Condition: Good Instructions (If sedation given, give patient instructions): Recurrent Seizures in Adults (ED) Is patient prescribed a controlled substance at d/c from ED?: No Referrals: None,Stated [REFERRING] - 1-2 days Karla Esposito MD [STAFF PHYSICIAN] - 1-2 days
[2021-11-27 17:59] LABS: Basophils % (A) 1 %; Eosinophils # (A) 0.2 k/uL (0-0.7); Eosinophils % (A) 5 %; HCT 41.3 % (39.0-53.0); HGB 13.8 gm/dL (13.0-17.5); Lymphocytes # (A) 1.3 k/uL (1.0-4.8); Lymphocytes % (A) 29 %; MCH 27.5 pg (25.0-35.0); MCHC 33.4 g/dL (31.0-37.0); MCV 82.3 fL (80.0-100.0); Mean Platelet Volume 9.3; Monocytes # (A) 0.4 k/uL (0-1.0); Monocytes % (A) 8 %; Neutrophils # (A) 2.6 k/uL (1.3-7.7); Neutrophils % (A) 56 %; Platelet Count 141 k/uL (150-450); RBC 5.01 m/uL (4.30-5.90); WBC 4.6 k/uL (3.8-10.6)
[2021-11-27 18:10] LABS: ALT 18 U/L (4-49); AST 24 U/L (17-59); African American GFR (CKD) >90 (>60 ml/min/1.73 sqM); Albumin 4.7 g/dL (3.5-5.0); Alkaline Phosphatase 47 U/L (38-126); Anion Gap 14 mmol/L; Blood Urea Nitrogen 17 mg/dL (9-20); Calcium 9.1 mg/dL (8.4-10.2); Carbon Dioxide 24 mmol/L (22-30); Chloride 104 mmol/L (98-107); Glucose 119 mg/dL (74-99); Magnesium 2.1 mg/dL (1.6-2.3); Non-African American GFR(CKD) >90 (>60 ml/min/1.73 sqM); Sodium 142 mmol/L (137-145); Total Bilirubin 0.5 mg/dL (0.2-1.3); Total Protein 7.4 g/dL (6.3-8.2)
== END 2021-11-27 19:40 | disposition home or self-care (01) ==
LOC: EC 15:18
DX: G40.909 Epilepsy, unspecified, not intractable, without status epilepticus (principal); E11.9 Type 2 diabetes mellitus without complications; I25.2 Old myocardial infarction; Z87.891 Personal history of nicotine dependence; Z79.84 Long term (current) use of oral hypoglycemic drugs; Z79.899 Other long term (current) drug therapy; Z88.0 Allergy status to penicillin
CPT/HCPCS: 36415; 80053; 80177; 83735; 85025

== ENCOUNTER → 2021-12-02 | Outpatient (CLI) | payer MEDICARE, OTHER ==
--- NOTE | 2021-12-02 18:28 | CA ---
Transthoracic Echo Report Name: Roberto Burks Age: 66 Gender: M : 1955 Exam Date: 12/02/2021 13:25 Exam Location: [place] [facility] Ht (in): 70 Wt (lb): 200 Ordering Physician: Alberto England MD Attending/Referring Phys: Milling Operator Marlene Wong RDCS Procedure CPT: Indications: I63.9 STROKE Cardiac Hx: Technical Quality: Fair Contrast 1: Total Dose (mL): Contrast 2: Total Dose (mL): MEASUREMENTS (Male / Female) Normal Values 2D ECHO LV Diastolic Diameter PLAX 4.0 cm 4.2 - 5.9 / 3.9 - 5.3 cm LV Systolic Diameter PLAX 3.0 cm IVS Diastolic Thickness 1.2 cm 0.6 - 1.0 / 0.6 - 0.9 cm LVPW Diastolic Thickness 1.4 cm 0.6 - 1.0 / 0.6 - 0.9 cm LV Relative Wall Thickness 0.6 RV Internal Dim ED PLAX 2.9 cm LA Volume 38.0 cm??? 18 - 58 / 22 - 52 cm??? M-MODE Aortic Root Diameter MM 3.1 cm LA Systolic Diameter MM 4.0 cm LA Ao Ratio MM 1.3 AV Cusp Separation MM 1.9 cm DOPPLER AV Peak Velocity 96.5 cm/s AV Peak Gradient 3.7 mmHg LVOT Peak Velocity 63.0 cm/s LVOT Peak Gradient 1.6 mmHg MV Area PHT 3.9 cm??? Mitral E Point Velocity 58.9 cm/s Mitral A Point Velocity 86.3 cm/s Mitral E to A Ratio 0.7 MV Deceleration Time 193.4 ms TR Peak Velocity 244.0 cm/s TR Peak Gradient 23.8 mmHg FINDINGS Left Ventricle Mildly increased left ventricular wall thickness. Normal left ventricular systolic function with no obvious regional wall motion abnormalities. Left ventricular ejection fraction is estimated at 55-60 %. Right Ventricle Normal right ventricular size. Right ventricular systolic pressure within normal limits. Right Atrium Normal right atrial size. Left Atrium Normal left atrial size. Mitral Valve Structurally normal mitral valve. No mitral stenosis, regurgitation or prolapse. Aortic Valve Trileaflet aortic valve. No aortic valve stenosis or regurgitation. Tricuspid Valve Structurally normal tricuspid valve. Mild tricuspid regurgitation. Pulmonic Valve Trace pulmonic regurgitation. Pericardium No pericardial effusion. Aorta Normal size aortic root and proximal ascending aorta. CONCLUSIONS LVH with preserved systolic function Previewed by: Dr. Kranthi Bernabe MD (Electronically Signed) Final Date: 02 December 2021 18:27
== END | disposition home or self-care (01) ==
LOC: RADECHMAIN 13:14
PROVIDERS: ATTEND Internal Medicine Geriatric Medicine
DX: I63.9 Cerebral infarction, unspecified (principal)
CPT/HCPCS: 93306

== ENCOUNTER → 2021-12-06 | Outpatient (CLI) | payer MEDICARE, OTHER ==
--- NOTE | 2021-12-06 16:22 | US ---
EXAMINATION TYPE: US carotid duplex BILAT DATE OF EXAM: 12/06/2021 COMPARISON: NONE CLINICAL HISTORY: I63.9 STROKE. Stroke, pt states changes in vision in left eye TECHNIQUE: Carotid duplex ultrasound examination. Indirect Doppler criteria was utilized. FINDINGS: EXAM MEASUREMENTS: RIGHT: Peak Systolic Velocity (PSV) cm/sec ----- Right CCA: 59.5 ----- Right ICA: 83.4 ----- Right ECA: 93.0 ICA/CCA ratio: 1.4 RIGHT: End Diastole cm/sec ----- Right CCA: 11.1 ----- Right ICA: 23.2 ----- Right ECA: 0.0 LEFT: Peak Systolic Velocity (PSV) cm/sec ----- Left CCA: 67.7 ----- Left ICA: 86.4 ----- Left ECA: 75.4 ICA/CCA ratio: 1.3 LEFT: End Diastole cm/sec ----- Left CCA: 11.9 ----- Left ICA: 23.7 ----- Left ECA: 0.0 VERTEBRALS (direction of flow): Right Vertebral: Antegrade Left Vertebral: Antegrade Rhythm: Normal CROP SETTING OUT MACHINE OPERATOR NOTES: No significant stenosis seen IMPRESSION: Less than 50% stenosis of the bilateral carotid bifurcations. Criteria for Assigning % of Stenosis / Diameter reduction (Estimation based on the indirect measurements of the internal carotid artery velocities (ICA PSV). 1. Normal (no stenosis)=ICA PSV < 125 cm/s: ratio < 2.0: ICA EDV<40 cm/s. 2. Less than 50% stenosis=ICA PSV < 125 cm/s: ratio < 2.0: ICA EDV<40 cm/s. 3. 50 to 69% stenosis=ICA PSV of 125 to 230 cm/s: ration 2.0 ? 4.0: ICA EDV 40-100 cm/s. 4. Greater than 70% stenosis to near occlusion= ICA PSV > 230 cm/s: ratio > 4.0: ICA EDV > 100 cm/s. 5. Near occlusion= ICA PSV velocities may be low or undetectable: variable ratio and ICA EDV. 6. Total occlusion=unable to detect flow.
== END | disposition home or self-care (01) ==
LOC: RADUSWWP 15:48
PROVIDERS: ATTEND Internal Medicine Geriatric Medicine
DX: I65.23 Occlusion and stenosis of bilateral carotid arteries (principal)
CPT/HCPCS: 93880

== ENCOUNTER 2022-02-05 18:07 | Emergency (ER) | payer OTHER, MEDICARE ==
[2022-02-05 18:15] VITALS: TEMP 96.7
--- NOTE | 2022-02-05 18:42 | ED ---
Seizure HPI - General Chief Complaint: Seizure Stated Complaint: R56.9 Seizure Time Seen by Provider: 02/05/22 18:14 Source: EMS Mode of arrival: EMS Limitations: altered mental status - History of Present Illness Initial Comments: This patient is 66-year-old man with history of rheumatic brain injury and some continuing disability, who is brought after he had a seizure at home. On arrival patient not able to give any history due to appearing post ictal. History from the patient's mother and a caregiver, who state that he had a little bit of a stressful day and then developed seizure. No known associated injury. MD Complaint: seizure -: hour(s) Description of Episode: tonic-clonic movement -: second(s) Witnessed: yes - by bystander Trauma: No Seizure History: known seizure disorder Place: home Possible Precipitating Event: stress Associated Symptoms: denies other symptoms Treatments Prior to Arrival: none - Related Data Home Medications Medication Instructions Recorded Confirmed Clopidogrel Bisulfate [Plavix] 75 mg PO DAILY@82905/04/21 02/05/22 Empagliflozin [Jardiance] 25 mg PO DAILY@82905/04/21 02/05/22 Isosorbide Mononitrate ER [Imdur] 30 mg PO DAILY@82905/04/21 02/05/22 Loratadine 10 mg PO DAILY@82905/04/21 02/05/22 Multivitamins, Thera [Multivitamin 1 tab PO DAILY@82905/04/21 02/05/22 (formulary)] Rifaximin [Xifaxan] 550 mg PO BID@05/04/21 02/05/22 metFORMIN HCL 500 mg PO DAILY@82905/04/21 02/05/22 Atorvastatin Calcium [Lipitor] 40 mg PO HS@202909/07/21 02/05/22 Aspirin EC [Ecotrin Low Dose] 81 mg PO DAILY@82909/10/21 02/05/22 Metoprolol Succinate [Toprol XL] 50 mg PO DAILY@82909/15/21 02/05/22 levETIRAcetam [Keppra] 1,500 mg PO BID@0830,222909/22/21 02/05/22 Omeprazole [PriLOSEC] 20 mg PO DAILY@82911/27/21 02/05/22 Chlorhexidine Gluconate [Peridex] 15 ml PO BID@0830,2030 02/05/22 02/05/22 Lacosamide [Vimpat] 150 mg PO BID@0830,2230 02/05/22 02/05/22 Allergies Allergy/AdvReac Type Severity Reaction Status Date / Time Penicillins AdvReac Unknown Verified 02/05/22 20:32 Childhood Review of Systems ROS Statement: Those systems with pertinent positive or pertinent negative responses have been documented in the HPI. ROS Other: All systems not noted in ROS Statement are negative. Constitutional: Denies: fever, chills Respiratory: Denies: cough, dyspnea Cardiovascular: Denies: chest pain, palpitations, syncope Gastrointestinal: Denies: abdominal pain, vomiting, diarrhea Genitourinary: Denies: dysuria, hematuria Musculoskeletal: Denies: back pain Skin: Denies: rash Neurological: Denies: headache, weakness Past Medical History Past Medical History: Diabetes Mellitus, Liver Disease, Myocardial Infarction ([place]) Additional Past Medical History / Comment(s): non-verbal, TBI, visually impaired Last Myocardial Infarction Date:: unknown History of Any Multi-Drug Resistant Organisms: None Reported Past Surgical History: Appendectomy, Orthopedic Surgery Additional Past Surgical History / Comment(s): brain, samson left leg, left leg cyst removal Past Anesthesia/Blood Transfusion Reactions: No Reported Reaction Past Psychological History: No Psychological Hx Reported Smoking Status: Former smoker Past Alcohol Use History: Unable to Obtain Past Drug Use History: Unable to Obtain General Exam Limitations: altered mental status General appearance: obtunded Head exam: Present: atraumatic, normocephalic Eye exam: Present: normal appearance. Absent: scleral icterus, conjunctival injection Neck exam: Present: normal inspection, full ROM. Absent: tenderness Respiratory exam: Present: normal lung sounds bilaterally. Absent: respiratory distress, wheezes, rales, rhonchi, stridor Cardiovascular Exam: Present: regular rate, normal rhythm, normal heart sounds. Absent: systolic murmur, diastolic murmur, rubs, gallop GI/Abdominal exam: Present: soft. Absent: distended, tenderness, guarding, rebound, rigid, mass Extremities exam: Present: normal inspection, normal capillary refill. Absent: pedal edema, calf tenderness Back exam: Present: normal inspection. Absent: vertebral tenderness Neurological exam: Present: altered, CN II-XII intact, reflexes normal. Absent: motor sensory deficit Skin exam: Present: warm, dry, intact, normal color. Absent: rash Course Vital Signs 02/05/22 02/05/22 18:11 21:15 Temperature 96.7 F L Pulse Rate 71 69 Respiratory 18 14 Rate Blood Pressure 139/91 129/81 O2 Sat by Pulse 99 99 Oximetry Medical Decision Making - Medical Decision Making Patient is 66-year-old man suspected of having had a seizure at home. On reevaluation, the patient is alert and interactive. Patient's mother and caregiver state he appears to be at his baseline. He does give thumbs up gesture. They would like to take him home and I did recommend follow-up with his neurologist. Return parameters discussed - Lab Data Result diagrams: 02/05/22 18:25 02/05/22 18:25 Lab Results 02/05/22 02/05/22 02/05/22 Range/Units 18:25 18:25 18:45 WBC 5.1 (3.8-10.6) k/uL RBC 4.70 (4.30-5.90) m/uL Hgb 13.2 (13.0-17.5) gm/dL Hct 38.8 L (39.0-53.0) % MCV 82.6 (80.0-100.0) fL MCH 28.1 (25.0-35.0) pg MCHC 34.0 (31.0-37.0) g/dL RDW 13.7 (11.5-15.5) % Plt Count 122 L (150-450) k/uL MPV 9.1 Neutrophils % 56 % Lymphocytes % 27 % Monocytes % 7 % Eosinophils % 6 % Basophils % 1 % Neutrophils # 2.9 (1.3-7.7) k/uL Lymphocytes # 1.4 (1.0-4.8) k/uL Monocytes # 0.4 (0-1.0) k/uL Eosinophils # 0.3 (0-0.7) k/uL Basophils # 0.0 (0-0.2) k/uL Sodium 143 (137-145) mmol/L Potassium 4.4 (3.5-5.1) mmol/L Chloride 112 H (98-107) mmol/L Carbon Dioxide 27 (22-30) mmol/L Anion Gap 4 mmol/L BUN 20 (9-20) mg/dL Creatinine 0.58 L (0.66-1.25) mg/dL Est GFR (CKD-EPI)AfAm >90 (>60 ml/min/1.73 sqM) Est GFR (CKD-EPI)NonAf >90 (>60 ml/min/1.73 sqM) Glucose 103 H (74-99) mg/dL Calcium 8.4 (8.4-10.2) mg/dL Magnesium 1.9 (1.6-2.3) mg/dL Total Bilirubin 0.6 (0.2-1.3) mg/dL AST 21 (17-59) U/L ALT 15 (4-49) U/L Alkaline Phosphatase 52 (38-126) U/L Total Protein 6.5 (6.3-8.2) g/dL Albumin 4.0 (3.5-5.0) g/dL Urine Color Urine Appearance (Clear) Urine pH (5.0-8.0) Ur Specific [place] (1.001-1.035) Urine Protein (Negative) Urine Glucose (UA) (Negative) Urine Ketones (Negative) Urine Blood (Negative) Urine Nitrite (Negative) Urine Bilirubin (Negative) Urine Urobilinogen (<2.0) mg/dL Ur Leukocyte Esterase (Negative) Levetiracetam 19.6 (3.0-60.0) ug/mL 02/05/22 Range/Units 18:58 WBC (3.8-10.6) k/uL RBC (4.30-5.90) m/uL Hgb (13.0-17.5) gm/dL Hct (39.0-53.0) % MCV (80.0-100.0) fL MCH (25.0-35.0) pg MCHC (31.0-37.0) g/dL RDW (11.5-15.5) % Plt Count (150-450) k/uL MPV Neutrophils % % Lymphocytes % % Monocytes % % Eosinophils % % Basophils % % Neutrophils # (1.3-7.7) k/uL Lymphocytes # (1.0-4.8) k/uL Monocytes # (0-1.0) k/uL Eosinophils # (0-0.7) k/uL Basophils # (0-0.2) k/uL Sodium (137-145) mmol/L Potassium (3.5-5.1) mmol/L Chloride (98-107) mmol/L Carbon Dioxide (22-30) mmol/L Anion Gap mmol/L BUN (9-20) mg/dL Creatinine (0.66-1.25) mg/dL Est GFR (CKD-EPI)AfAm (>60 ml/min/1.73 sqM) Est GFR (CKD-EPI)NonAf (>60 ml/min/1.73 sqM) Glucose (74-99) mg/dL Calcium (8.4-10.2) mg/dL Magnesium (1.6-2.3) mg/dL Total Bilirubin (0.2-1.3) mg/dL AST (17-59) U/L ALT (4-49) U/L Alkaline Phosphatase (38-126) U/L Total Protein (6.3-8.2) g/dL Albumin (3.5-5.0) g/dL Urine Color Yellow Urine Appearance Clear (Clear) Urine pH 6.5 (5.0-8.0) Ur Specific [place] 1.042 H (1.001-1.035) Urine Protein Negative (Negative) Urine Glucose (UA) 4+ H (Negative) Urine Ketones Negative (Negative) Urine Blood Negative (Negative) Urine Nitrite Negative (Negative) Urine Bilirubin Negative (Negative) Urine Urobilinogen <2.0 (<2.0) mg/dL Ur Leukocyte Esterase Negative (Negative) Levetiracetam (3.0-60.0) ug/mL - EKG Data -: EKG Interpreted by Ma EKG shows normal: sinus rhythm, axis (Normal), intervals (WI interval 211 ms, consistent with first-degree AV block. QRS duration 92 ms, QTc 412 ms these are normal.), QRS complexes (Suspected old septal infarct based on Q waves in V1- 2), ST-T waves (Normal) Rate: normal (Rate 70 bpm) Disposition Clinical Impression: Seizure Disposition: HOME SELF-CARE Condition: Good Instructions (If sedation given, give patient instructions): Recurrent Seizures in Adults (ED) Is patient prescribed a controlled substance at d/c from ED?: No Referrals: Alberto England MD [Primary Care Provider] - 1-2 days Karla Esposito MD [STAFF PHYSICIAN] - 1-2 days
[2022-02-05 18:52] LABS: Basophils % (A) 1 %; Eosinophils # (A) 0.3 k/uL (0-0.7); Eosinophils % (A) 6 %; HCT 38.8 % (39.0-53.0); HGB 13.2 gm/dL (13.0-17.5); Lymphocytes # (A) 1.4 k/uL (1.0-4.8); Lymphocytes % (A) 27 %; MCH 28.1 pg (25.0-35.0); MCV 82.6 fL (80.0-100.0); Mean Platelet Volume 9.1; Monocytes # (A) 0.4 k/uL (0-1.0); Monocytes % (A) 7 %; Neutrophils # (A) 2.9 k/uL (1.3-7.7); Neutrophils % (A) 56 %; Platelet Count 122 k/uL (150-450); RDW 13.7 % (11.5-15.5); WBC 5.1 k/uL (3.8-10.6)
[2022-02-05 19:08] LABS: Appearance,Urine Clear (Clear); Bilirubin,Urine Negative (Negative); Blood,Urine Negative (Negative); Color,Urine Yellow; Glucose,Urine (UA) 4+ (Negative); Ketones,Urine Negative (Negative); Leukocyte Esterase,Urine Negative (Negative); Nitrite,Urine Negative (Negative); PH, Urine 6.5 (5.0-8.0); Protein,Urine Negative (Negative); Specific Gravity,Urine 1.042 (1.001-1.035); Urobilinogen,Urine <2.0 mg/dL (<2.0)
[2022-02-05 19:11] LABS: Chloride 112 mmol/L (98-107)
[2022-02-05 19:12] LABS: ALT 15 U/L (4-49); AST 21 U/L (17-59); African American GFR (CKD) >90 (>60 ml/min/1.73 sqM); Alkaline Phosphatase 52 U/L (38-126); Anion Gap 4 mmol/L; Blood Urea Nitrogen 20 mg/dL (9-20); Calcium 8.4 mg/dL (8.4-10.2); Carbon Dioxide 27 mmol/L (22-30); Glucose 103 mg/dL (74-99); Magnesium 1.9 mg/dL (1.6-2.3); Non-African American GFR(CKD) >90 (>60 ml/min/1.73 sqM); Potassium 4.4 mmol/L (3.5-5.1); Sodium 143 mmol/L (137-145); Total Bilirubin 0.6 mg/dL (0.2-1.3); Total Protein 6.5 g/dL (6.3-8.2)
--- NOTE | 2022-02-05 19:48 | CT ---
EXAMINATION TYPE: CT brain wo con CT DLP: 1225.4 mGycm, Automated exposure control for dose reduction was used. DATE OF EXAM: 02/05/2022 7:20 PM COMPARISON: 09/06/2021 CLINICAL INDICATION:Male, 66 years old with history of head injury, HEAD INJURY TECHNIQUE: Brain: Axial CT images of the brain were obtained with coronal and sagittal reformats created and rev iewed. Contrast used: None. Oral contrast used: None. FINDINGS: Brain: Extra-axial spaces: No abnormal extra-axial fluid collections. Ventricular system: Within normal limits Cerebral parenchyma: Encephalomalacia of the right occipital lobe and temporal lobe. No acute intrapa renchymal hemorrhage or mass effect. The yung-white junction is well differentiated. Cerebellum: Unremarkable. Mass effect: No evidence of midline shift. Intracranial vasculature: Atherosclerotic calcifications of the intracranial vessels. Soft tissues: Normal. Calvarium/osseous structures: No depressed skull fracture. Craniotomy changes to the right skull.4 Paranasal sinuses and mastoid air cells: Mild scattered paranasal sinus disease. Visualized orbits: Bilateral aphakia IMPRESSION: 1. No acute intracranial process. 2. 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
[2022-02-05 21:57] VITALS: BP 129/81; PULSE 69; RESP 14
== END 2022-02-05 21:40 | disposition home or self-care (01) ==
LOC: EC 18:07
DX: R56.9 Unspecified convulsions (principal); E11.9 Type 2 diabetes mellitus without complications; I25.2 Old myocardial infarction; Z87.891 Personal history of nicotine dependence; Z79.84 Long term (current) use of oral hypoglycemic drugs; Z79.02 Long term (current) use of antithrombotics/antiplatelets; Z79.899 Other long term (current) drug therapy; Z88.0 Allergy status to penicillin
CPT/HCPCS: 36415; 70450; 80053; 80177; 81003; 83735; 85025; 93005; 99285

== ENCOUNTER 2022-03-10 11:12 | Emergency (ER) | payer OTHER, MEDICARE ==
[2022-03-10 11:18] VITALS: TEMP 97.8
--- NOTE | 2022-03-10 11:40 | ED ---
General Adult HPI - General Chief complaint: Seizure Stated complaint: Seizure Time Seen by Provider: 03/10/22 11:14 Source: patient, RN notes reviewed Mode of arrival: EMS Limitations: altered mental status (Speech abnormality), physical limitation - History of Present Illness Initial comments: Patient is a pleasant [age]-year-old male presenting to the emergency department with concerns for possible seizure. Patient states he does not know if he had one or not. Patient states he feels fine at this time and has no complaints. Patient states he does not know he had seizures normally. Patient states his speech is normal for him. Patient denies any new area of weakness. - Related Data Home Medications Medication Instructions Recorded Confirmed Clopidogrel Bisulfate [Plavix] 75 mg PO DAILY@82905/04/21 02/05/22 Empagliflozin [Jardiance] 25 mg PO DAILY@82905/04/21 02/05/22 Isosorbide Mononitrate ER [Imdur] 30 mg PO DAILY@82905/04/21 02/05/22 Loratadine 10 mg PO DAILY@82905/04/21 02/05/22 Multivitamins, Thera [Multivitamin 1 tab PO DAILY@82905/04/21 02/05/22 (formulary)] Rifaximin [Xifaxan] 550 mg PO BID@829,222905/04/21 02/05/22 metFORMIN HCL 500 mg PO DAILY@82905/04/21 02/05/22 Atorvastatin Calcium [Lipitor] 40 mg PO HS@202909/07/21 02/05/22 Aspirin EC [Ecotrin Low Dose] 81 mg PO DAILY@82909/10/21 02/05/22 Metoprolol Succinate [Toprol XL] 50 mg PO DAILY@82909/15/21 02/05/22 levETIRAcetam [Keppra] 1,500 mg PO BID@829,222909/22/21 02/05/22 Omeprazole [PriLOSEC] 20 mg PO DAILY@82911/27/21 02/05/22 Chlorhexidine Gluconate [Peridex] 15 ml PO BID@829,202902/05/22 02/05/22 Lacosamide [Vimpat] 150 mg PO BID@829,222902/05/2202/05/22 Allergies Allergy/AdvReac Type Severity Reaction Status Date / Time Penicillins AdvReac Unknown Verified 03/10/22 11:18 Childhood Review of Systems ROS Statement: Those systems with pertinent positive or pertinent negative responses have been documented in the HPI. ROS Other: All systems not noted in ROS Statement are negative. Constitutional: Denies: fever Eyes: Denies: eye pain ENT: Denies: ear pain Respiratory: Denies: cough Cardiovascular: Denies: chest pain Endocrine: Denies: fatigue Gastrointestinal: Denies: abdominal pain Past Medical History Past Medical History: Diabetes Mellitus, Liver Disease, Myocardial Infarction ([place]) Additional Past Medical History / Comment(s): non-verbal, TBI, visually impaired Last Myocardial Infarction Date:: unknown History of Any Multi-Drug Resistant Organisms: None Reported Past Surgical History: Appendectomy, Orthopedic Surgery Additional Past Surgical History / Comment(s): brain, samson left leg, left leg cyst removal Past Anesthesia/Blood Transfusion Reactions: No Reported Reaction Past Psychological History: No Psychological Hx Reported Smoking Status: Former smoker Past Alcohol Use History: Unable to Obtain Past Drug Use History: Unable to Obtain General Exam Limitations: altered mental status (Patient is difficult to understand), physical limitation General appearance: alert, in no apparent distress Head exam: Present: atraumatic Eye exam: Present: normal appearance, PERRL, EOMI ENT exam: Present: normal oropharynx Neck exam: Present: normal inspection, tenderness (Minimal cervical tenderness) Respiratory exam: Present: normal lung sounds bilaterally Cardiovascular Exam: Present: regular rate, normal rhythm GI/Abdominal exam: Present: soft. Absent: tenderness Extremities exam: Present: normal inspection, full ROM. Absent: tenderness Neurological exam: Present: alert, CN II-XII intact. Absent: motor sensory deficit Expanded Neurological exam: Present: other (Somewhat garbled speech) Cranial nerves: EOM's Intact: Normal Motor strength exam: RUE: 5, LUE: 5, RLE: 5, LLE: 5 Psychiatric exam: Present: normal affect, normal mood Skin exam: Present: normal color Course Vital Signs 03/10/22 11:15 Temperature 97.8 F Pulse Rate 72 Respiratory 18 Rate Blood Pressure 128/68 O2 Sat by Pulse 97 Oximetry EKG Findings - EKG Results: EKG: interpreted by ERMD (Prescription AV block [place] 213), sinus rhythm, normal a xis, normal QRS, normal ST/T Medical Decision Making - Medical Decision Making Was pt. sent in by a medical professional or institution (AMY Thakur, MANUFACTURING SCHEDULER, urgent care, hospital, or penitentiary...) When possible be specific @ -No Did you speak to anyone other than the patient for history (EMS, parent, family, police, friend...)? What history was obtained from this source @ -Family does arrive later and helps provide history. Patient at this point patient is at his baseline. Did you review nursing and triage notes (agree or disagree)? Why? @ -I reviewed and agree with nursing and triage notes Were old charts reviewed (outside hosp., previous admission, EMS record, old EKG, old radiological studies, urgent care reports/EKG's, penitentiary records)? Report findings @ -No old charts were reviewed Differential Diagnosis (chest pain, altered mental status, abdominal pain women, abdominal pain men, vaginal bleeding, weakness, fever, dyspnea, syncope, headache, dizziness, GI bleed, back pain, seizure, CVA, palpatations, mental health)? @ -Differential Seizure: Recurrent seizure disorder, febrile seizure, alcohol withdrawal, stimulants, meningitis, encephalitis, intercranial hemorrhage, intracranial tumor, stroke, eclampsia, thyrotoxicosis, hypocalcemia, hyponatremia, hypernatremia, hypomagnesemia, psychogenic, this is not meant to be an all-inclusive list. EKG interpreted by me (3pts min.). @ -As above X-rays interpreted by me (1pt min.). @ -Chest x-ray shows no acute process CT interpreted by me (1pt min.). @ -Report reviewed U/S interpreted by me (1pt. min.). @ -None done What testing was considered but not performed or refused? (CT, X-rays, U/S, labs)? Why? @ -None What meds were considered but not given or refused? Why? @ -Considered Keppra however patient is arty on dose of 1500 twice a day Did you discuss the management of the patient with other professionals (professionals i.e. AMY Thakur, MANUFACTURING SCHEDULER, lab, RT, psych nurse, social services director, counseling center manager, teacher, maritime officer, case finisher)? Give summary @ -No Was smoking cessation discussed for >3mins.? @ -No Was critical care preformed (if so, how long)? @ -No Were there social determinants of health that impacted care today? How? (Homelessness, low income, unemployed, alcoholism, drug addiction, transportation, low edu. Level, literacy, decrease access to med. care, [facility], rehab)? @ -No Was there de-escalation of care discussed even if they declined (Discuss DNR or withdrawal of care, Hospice)? DNR status @ -No What co-morbidities impacted this encounter? (DM, HTN, Smoking, COPD, CAD, Cancer, CVA, ARF, Chemo, Hep., AIDS, mental health diagnosis, sleep apnea, morbid obesity)? @ -None Was patient admitted / discharged? Hospital course, mention meds given and route, prescriptions, significant lab abnormalities, going to OR and other pertinent info. @ -Patient reevaluated. Family updated. They're all requesting discharge home. Advised need for follow-up with primary care physician and review of Keppra level. Undiagnosed new problem with uncertain prognosis? @ -No Drug Therapy requiring intensive monitoring for toxicity (Heparin, Nitro, Insulin, Cardizem)? @ -No Were any procedures done? @ -No Diagnosis/symptom? @ -Seizure Acute, or Chronic, or Acute on Chronic? @ -Acute on chronic Uncomplicated (without systemic symptoms) or Complicated (systemic symptoms)? @ -default Side effects of treatment? @ -No Exacerbation, Progression, or Severe Exacerbation? @ -No Poses a threat to life or bodily function? How? (Chest pain, USA, NH, pneumonia, PE, COPD, DKA, ARF, appy, cholecystitis, CVA, Diverticulitis, Homicidal, Suicidal, threat to staff... and all critical care pts) @ -No - Lab Data Result diagrams: 03/10/22 11:45 03/10/22 11:45 Lab Results 03/10/22 03/10/22 Range/Units 11:45 11:45 WBC 4.8 (3.8-10.6) k/uL RBC 4.63 (4.30-5.90) m/uL Hgb 13.0 (13.0-17.5) gm/dL Hct 37.2 L (39.0-53.0) % MCV 80.4 (80.0-100.0) fL MCH 28.1 (25.0-35.0) pg MCHC 35.0 (31.0-37.0) g/dL RDW 13.8 (11.5-15.5) % Plt Count 138 L (150-450) k/uL MPV 9.2 Neutrophils % 57 % Lymphocytes % 26 % Monocytes % 8 % Eosinophils % 4 % Basophils % 1 % Neutrophils # 2.8 (1.3-7.7) k/uL Lymphocytes # 1.3 (1.0-4.8) k/uL Monocytes # 0.4 (0-1.0) k/uL Eosinophils # 0.2 (0-0.7) k/uL Basophils # 0.0 (0-0.2) k/uL Sodium 142 (137-145) mmol/L Potassium 3.9 (3.5-5.1) mmol/L Chloride 110 H (98-107) mmol/L Carbon Dioxide 26 (22-30) mmol/L Anion Gap 6 mmol/L BUN 17 (9-20) mg/dL Creatinine 0.51 L (0.66-1.25) mg/dL Est GFR (CKD-EPI)AfAm >90 (>60 ml/min/1.73 sqM) Est GFR (CKD-EPI)NonAf >90 (>60 ml/min/1.73 sqM) Glucose 137 H (74-99) mg/dL Calcium 8.9 (8.4-10.2) mg/dL Magnesium 2.0 (1.6-2.3) mg/dL Total Bilirubin 0.6 (0.2-1.3) mg/dL AST 22 (17-59) U/L ALT 18 (4-49) U/L Alkaline Phosphatase 41 (38-126) U/L Total Protein 6.7 (6.3-8.2) g/dL Albumin 4.1 (3.5-5.0) g/dL Serum Alcohol <10 mg/dL Disposition Clinical Impression: Seizure Disposition: HOME SELF-CARE Condition: Stable Instructions (If sedation given, give patient instructions): Recurrent Seizures in Adults (ED) Additional Instructions: Please do follow-up with primary care physician next day or 2 for recheck. Have primary care physician review Keppra level was ordered today. Return for recurrent seizures, worsening or change in symptoms, or other concerns. Is patient prescribed a controlled substance at d/c from ED?: No Referrals: Alberto England MD [Primary Care Provider] - 1-2 days Time of Disposition: 14:10
[2022-03-10 12:08] LABS: Basophils % (A) 1 %; Eosinophils # (A) 0.2 k/uL (0-0.7); Eosinophils % (A) 4 %; HCT 37.2 % (39.0-53.0); Lymphocytes # (A) 1.3 k/uL (1.0-4.8); Lymphocytes % (A) 26 %; MCH 28.1 pg (25.0-35.0); MCV 80.4 fL (80.0-100.0); Mean Platelet Volume 9.2; Monocytes # (A) 0.4 k/uL (0-1.0); Monocytes % (A) 8 %; Neutrophils # (A) 2.8 k/uL (1.3-7.7); Neutrophils % (A) 57 %; Platelet Count 138 k/uL (150-450); RBC 4.63 m/uL (4.30-5.90); RDW 13.8 % (11.5-15.5); WBC 4.8 k/uL (3.8-10.6)
[2022-03-10 12:20] LABS: ALT 18 U/L (4-49); AST 22 U/L (17-59); African American GFR (CKD) >90 (>60 ml/min/1.73 sqM); Albumin 4.1 g/dL (3.5-5.0); Alcohol <10 mg/dL; Alkaline Phosphatase 41 U/L (38-126); Anion Gap 6 mmol/L; Blood Urea Nitrogen 17 mg/dL (9-20); Calcium 8.9 mg/dL (8.4-10.2); Carbon Dioxide 26 mmol/L (22-30); Chloride 110 mmol/L (98-107); Glucose 137 mg/dL (74-99); Non-African American GFR(CKD) >90 (>60 ml/min/1.73 sqM); Potassium 3.9 mmol/L (3.5-5.1); Sodium 142 mmol/L (137-145); Total Bilirubin 0.6 mg/dL (0.2-1.3); Total Protein 6.7 g/dL (6.3-8.2)
--- NOTE | 2022-03-10 12:38 | CT ---
EXAMINATION TYPE: CT brain cspine wo con CT DLP: 1698.8 mGycm, Automated exposure control for dose reduction was used. DATE OF EXAM: 03/10/2022 12:26 PM COMPARISON: CT brain 02/05/2022. CLINICAL INDICATION:Male, 66 years old with history of Fall, seizure; FALL, SEIZURE TECHNIQUE: Brain: Multiple axial CT images of the brain were obtained without IV contrast. Cspine: Axial CT images from the skull base to the inferior aspect of T2 we obtained without intraven ous contrast. Coronal and sagittal reformatted images were also reviewed. FINDINGS: Brain: Extra-axial spaces: No abnormal extra-axial fluid collections. Ventricular system: Ex vacuo dilatation of the posterior and temporal horns of the right lateral vent ricle. Cerebral parenchyma: Cerebral atrophy. No acute intraparenchymal hemorrhage or mass effect. The yung -white junction is well differentiated. Scattered hypoattenuating areas are seen within the white mat ter. Encephalomalacia in the right occipital lobe and temporal lobe. Cerebellum: Unremarkable. Mass effect: No evidence of midline shift. Intracranial vasculature: Atherosclerotic calcifications of the intracranial vessels. Soft tissues: Normal. Calvarium/osseous structures: No depressed skull fracture. Redemonstration of craniotomy changes to t he right skull. Paranasal sinuses and mastoid air cells: Clear. Visualized orbits: The lenses are surgically removed from the globes. Cervical spine: Fracture: None. Osseous structures: Multilevel degenerative disc disease changes with endplate spurring and disc oste ophyte complex's. Multilevel facet arthropathy. Vertebral alignment: Grade 1 anterolisthesis of C4 on C5, likely degenerative. Spinal canal/Neural Foramina: Disc osteophyte complexes at C5-C6 with at least mild spinal canal sten osis. Facet joint uncovertebral joint arthropathy scattered throughout the cervical spine with varyin g degrees of neural foraminal stenosis. Neck soft tissues: Prevertebral soft tissues are within normal limits. Other: The airway is patent. The lung apices are clear. IMPRESSION: 1. No acute intracranial process. 2. Encephalomalacia from prior injury of the right occipital and temporal lobes. 3. No evidence of cervical spine fracture. 4. Mild multilevel degenerative disc disease.
[2022-03-10 14:26] VITALS: BP 142/93; PULSE 78; RESP 16
== END 2022-03-10 14:26 | disposition home or self-care (01) ==
LOC: EC 11:12
DX: R56.9 Unspecified convulsions (principal); E11.9 Type 2 diabetes mellitus without complications; I25.2 Old myocardial infarction; Z87.891 Personal history of nicotine dependence; Z88.0 Allergy status to penicillin; Z79.84 Long term (current) use of oral hypoglycemic drugs; Z79.82 Long term (current) use of aspirin
CPT/HCPCS: 36415; 70450; 72125; 80053; 80177; 80320; 83735; 85025; 93005; 99285

== ENCOUNTER 2022-04-17 00:12 | Emergency (ER) | payer OTHER, MEDICARE ==
[2022-04-17] MEDS ORDERED: MORPHINE SULFATE 4 MG/ML SYRINGE IVP STA (00:29)
[2022-04-17 00:37] VITALS: TEMP 97
[2022-04-17 00:57] LABS: Basophils # (A) 0.1 k/uL (0-0.2); Basophils % (A) 1 %; Eosinophils # (A) 0.3 k/uL (0-0.7); Eosinophils % (A) 6 %; HCT 37.2 % (39.0-53.0); HGB 13.2 gm/dL (13.0-17.5); Lymphocytes # (A) 1.6 k/uL (1.0-4.8); Lymphocytes % (A) 29 %; MCH 28.9 pg (25.0-35.0); MCHC 35.6 g/dL (31.0-37.0); MCV 81.2 fL (80.0-100.0); Mean Platelet Volume 9.1; Monocytes # (A) 0.5 k/uL (0-1.0); Monocytes % (A) 9 %; Neutrophils # (A) 2.9 k/uL (1.3-7.7); Neutrophils % (A) 52 %; Platelet Count 128 k/uL (150-450); RBC 4.58 m/uL (4.30-5.90); RDW 14.2 % (11.5-15.5); WBC 5.6 k/uL (3.8-10.6)
[2022-04-17 01:03] LABS: ALT 18 U/L (4-49); AST 28 U/L (17-59); African American GFR (CKD) >90 (>60 ml/min/1.73 sqM); Albumin 4.4 g/dL (3.5-5.0); Alkaline Phosphatase 48 U/L (38-126); Anion Gap 9 mmol/L; Blood Urea Nitrogen 23 mg/dL (9-20); Calcium 9.3 mg/dL (8.4-10.2); Carbon Dioxide 27 mmol/L (22-30); Chloride 105 mmol/L (98-107); Glucose 119 mg/dL (74-99); Lipase 97 U/L (23-300); Non-African American GFR(CKD) >90 (>60 ml/min/1.73 sqM); Potassium 4.3 mmol/L (3.5-5.1); Sodium 141 mmol/L (137-145); Total Bilirubin 0.8 mg/dL (0.2-1.3); Total Protein 7.1 g/dL (6.3-8.2)
[2022-04-17] MEDS ORDERED: HYDROmorphone 1 MG/ML 1 ML SYRINGE IVP STA (01:11)
[2022-04-17 01:23] LABS: Appearance,Urine Clear (Clear); Bilirubin,Urine Negative (Negative); Blood,Urine Negative (Negative); Color,Urine Yellow; Glucose,Urine (UA) 4+ (Negative); Ketones,Urine Negative (Negative); Leukocyte Esterase,Urine Negative (Negative); Nitrite,Urine Negative (Negative); Protein,Urine Negative (Negative); Specific Gravity,Urine 1.043 (1.001-1.035); Urobilinogen,Urine <2.0 mg/dL (<2.0)
[2022-04-17 01:51] LABS: Glucose,Whole Blood 115 mg/dL (70-110)
--- NOTE | 2022-04-17 02:22 | ED ---
Abdominal Pain HPI - General Chief Complaint: Abdominal Pain Stated Complaint: pain Time Seen by Provider: 04/17/22 00:15 Source: patient, EMS Mode of arrival: EMS Limitations: language barrier - History of Present Illness Initial Comments: 66-year-old male with past medical history of traumatic brain injury, seizure disorder who presents to the emergency department from [facility]. He presents with right-sided flank and groin pain. Extremely tender to the touch. Pain just started just prior to hospital arrival. He was not given any pain medicat ions prior to coming. He denies hematuria, dysuria or difficulty voiding. No diarrhea, constipation, black or bloody stools. No nausea or vomiting. History is limited due to his language barrier - Related Data Home Medications Medication Instructions Recorded Confirmed Clopidogrel Bisulfate [Plavix] 75 mg PO DAILY@89905/04/21 04/24/22 Empagliflozin [Jardiance] 25 mg PO DAILY@89905/04/21 04/24/22 Isosorbide Mononitrate ER [Imdur] 30 mg PO DAILY@89905/04/21 04/24/22 Loratadine 10 mg PO DAILY@89905/04/21 04/24/22 Multivitamins, Thera [Multivitamin 1 tab PO DAILY@89905/04/21 04/24/22 (formulary)] Rifaximin [Xifaxan] 550 mg PO BID@899,209905/04/21 04/24/22 Atorvastatin Calcium [Lipitor] 40 mg PO HS@209909/07/21 04/24/22 Aspirin EC [Ecotrin Low Dose] 81 mg PO DAILY@89909/10/21 04/24/22 Metoprolol Succinate [Toprol XL] 50 mg PO DAILY@89909/15/21 04/24/22 levETIRAcetam [Keppra] 1,500 mg PO BID@09/22/21 04/24/22 Omeprazole [PriLOSEC] 20 mg PO DAILY@89911/27/21 04/24/22 Lactulose 10 gm PO DAILY@89904/10/22 04/24/22 Acetaminophen Tab [Tylenol] 650 mg PO Q4H PRN 04/24/22 04/24/22 Antacid 15 ml PO PCHS PRN 04/24/22 04/24/22 Ibuprofen [Motrin] 600 mg PO TID PRN 04/24/22 04/24/22 Lacosamide [Vimpat] 200 mg PO BID@0900,2100 04/24/22 04/24/22 Loperamide [Imodium] 2 - 4 mg PO QID PRN MDD 16 mg 04/24/22 04/24/22 Magnesium Hydroxide [Milk of 1,200 mg PO DAILY PRN 04/24/22 04/24/22 Magnesia] Melatonin 5 mg PO HS 04/24/22 04/24/22 Allergies Allergy/AdvReac Type Severity Reaction Status Date / Time Penicillins AdvReac Unknown Verified 03/10/22 11:18 Childhood Review of Systems ROS Statement: Those systems with pertinent positive or pertinent negative responses have been documented in the HPI. ROS Other: All systems not noted in ROS Statement are negative. Past Medical History Past Medical History: Diabetes Mellitus, Liver Disease, Myocardial Infarction (MS) Additional Past Medical History / Comment(s): non-verbal, TBI, visually impaired Last Myocardial Infarction Date:: unknown History of Any Multi-Drug Resistant Organisms: None Reported Past Surgical History: Appendectomy, Orthopedic Surgery Additional Past Surgical History / Comment(s): brain, samson left leg, left leg cyst removal Past Anesthesia/Blood Transfusion Reactions: No Reported Reaction Past Psychological History: No Psychological Hx Reported Smoking Status: Former smoker Past Alcohol Use History: Unable to Obtain Past Drug Use History: Unable to Obtain General Exam Limitations: language barrier General appearance: alert, in no apparent distress Eye exam: Present: normal appearance, PERRL, EOMI. Absent: scleral icterus, conjunctival injection, periorbital swelling Respiratory exam: Present: normal lung sounds bilaterally. Absent: respiratory distress, wheezes, rales, rhonchi, stridor Cardiovascular Exam: Present: regular rate, normal rhythm, normal heart sounds. Absent: systolic murmur, diastolic murmur, rubs, gallop, clicks GI/Abdominal exam: Present: tenderness (rlq) Extremities exam: Present: normal inspection, full ROM, normal capillary refill. Absent: tenderness, pedal edema, joint swelling, calf tenderness Neurological exam: Present: alert, oriented X3, CN II-XII intact Psychiatric exam: Present: normal affect, normal mood Skin exam: Present: warm, dry, intact, normal color. Absent: rash Course Vital Signs 04/17/22 04/17/22 04/17/22 00:13 00:37 01:52 Temperature 97 F L Pulse Rate 86 74 Respiratory 18 14 Rate Blood Pressure 149/91 135/71 O2 Sat by Pulse 96 94 L Oximetry 04/17/22 03:54 Temperature Pulse Rate 84 Respiratory 18 Rate Blood Pressure 128/72 O2 Sat by Pulse 98 Oximetry Medical Decision Making - Medical Decision Making Was pt. sent in by a medical professional or institution (, [facility], RIB CHOPPER, urgent care, hospital, or senior living...) When possible be specific @ -ECF Did you speak to anyone other than the patient for history (EMS, parent, family, police, friend...)? What history was obtained from this source @ -EMS Did you review nursing and triage notes (agree or disagree)? Why? @ -I reviewed and agree with nursing and triage notes Were old charts reviewed (outside hosp., previous admission, EMS record, old EKG, old radiological studies, urgent care reports/EKG's, senior living records)? Report findings @ -Old charts were reviewed - patient just recently hospitalized Differential Diagnosis (chest pain, altered mental status, abdominal pain women, abdominal pain men, vaginal bleeding, weakness, fever, dyspnea, syncope, headache, dizziness, GI bleed, back pain, seizure, CVA, palpatations, mental health, musculoskeletal)? @ -cholelithiasis, cholecystitis, gastritis, appendicitis EKG interpreted by me (3pts min.). @ -Not done X-rays interpreted by me (1pt min.). @ -None done CT interpreted by me (1pt min.). @ -Yes U/S interpreted by me (1pt. min.). @ -None done What testing was considered but not performed or refused? (CT, X-rays, U/S, labs)? Why? @ -None What meds were considered but not given or refused? Why? @ -None Did you discuss the management of the patient with other professionals (professionals i.e. AMY Thakur, RIB CHOPPER, lab, RT, psych nurse, social media specialist, gold charmer, teacher, district fire management officer, social work case manager)? Give summary @ -No Was smoking cessation discussed for >3mins.? @ -No Was critical care preformed (if so, how long)? @ -No Were there social determinants of health that impacted care today? How? (Homelessness, low income, unemployed, alcoholism, drug addiction, transportation, low edu. Level, literacy, decrease access to med. care, retirement, rehab)? @ -Coming from rehab Was there de-escalation of care discussed even if they declined (Discuss DNR or withdrawal of care, Hospice)? DNR status @ -No What co-morbidities impacted this encounter? (DM, HTN, Smoking, COPD, CAD, Cancer, CVA, ARF, Chemo, Hep., AIDS, mental health diagnosis, sleep apnea, morbid obesity)? @ -closed head injury with speech difficulties Was patient admitted / discharged? Hospital course, mention meds given and route, prescriptions, significant lab abnormalities, going to OR and other pertinent info. @ -Arrival patient was placed into room 1. History and physical exam was performed. He was given a dose pain medication. Laboratory studies are obtai teri. Urine sample was provided. He does go for a CT because of the distribution of his pain. CT is read as negative is any acute process. Patient's is able to eat and drink. Comfortable and will be discharged back to his facility at this time. Instructed for her note for any new or worsening s ymptoms. Patient discharged home in stable condition Undiagnosed new problem with uncertain prognosis? @ -Yes Drug Therapy requiring intensive monitoring for toxicity (Heparin, Nitro, Insulin, Cardizem)? @ -No Were any procedures done? @ -No Diagnosis/symptom? @ -acute abd pain Acute, or Chronic, or Acute on Chronic? @ -acute Uncomplicated (without systemic symptoms) or Complicated (systemic symptoms)? @ -complicated Side effects of treatment? @ -No Exacerbation, Progression, or Severe Exacerbation? @ -No Poses a threat to life or bodily function? How? (Chest pain, USA, MS, pneumonia, PE, COPD, DKA, ARF, appy, cholecystitis, CVA, Diverticulitis, Homicidal, Suicidal, threat to staff... and all critical care pts) @ -Yes - Lab Data Result diagrams: 04/17/22 00:37 04/17/22 00:37 Lab Results 04/17/22 04/17/22 04/17/22 Range/Units 00:37 00:37 00:37 WBC 5.6 (3.8-10.6) k/uL RBC 4.58 (4.30-5.90) m/uL Hgb 13.2 (13.0-17.5) gm/dL Hct 37.2 L (39.0-53.0) % MCV 81.2 (80.0-100.0) fL MCH 28.9 (25.0-35.0) pg MCHC 35.6 (31.0-37.0) g/dL RDW 14.2 (11.5-15.5) % Plt Count 128 L (150-450) k/uL MPV 9.1 Neutrophils % 52 % Lymphocytes % 29 % Monocytes % 9 % Eosinophils % 6 % Basophils % 1 % Neutrophils # 2.9 (1.3-7.7) k/uL Lymphocytes # 1.6 (1.0-4.8) k/uL Monocytes # 0.5 (0-1.0) k/uL Eosinophils # 0.3 (0-0.7) k/uL Basophils # 0.1 (0-0.2) k/uL Sodium 141 (137-145) mmol/L Potassium 4.3 (3.5-5.1) mmol/L Chloride 105 (98-107) mmol/L Carbon Dioxide 27 (22-30) mmol/L Anion Gap 9 mmol/L BUN 23 H (9-20) mg/dL Creatinine 0.48 L (0.66-1.25) mg/dL Est GFR (CKD-EPI)AfAm >90 (>60 ml/min/1.73 sqM) Est GFR (CKD-EPI)NonAf >90 (>60 ml/min/1.73 sqM) Glucose 119 H (74-99) mg/dL POC Glucose (mg/dL) (70-110) mg/dL POC Glu Cattle Farmer ID Plasma Lactic Acid Atul 1.5 (0.7-2.0) mmol/L Calcium 9.3 (8.4-10.2) mg/dL Total Bilirubin 0.8 (0.2-1.3) mg/dL AST 28 (17-59) U/L ALT 18 (4-49) U/L Alkaline Phosphatase 48 (38-126) U/L Total Protein 7.1 (6.3-8.2) g/dL Albumin 4.4 (3.5-5.0) g/dL Lipase 97 (23-300) U/L Urine Color Urine Appearance (Clear) Urine pH (5.0-8.0) Ur Specific [place] (1.001-1.035) Urine Protein (Negative) Urine Glucose (UA) (Negative) Urine Ketones (Negative) Urine Blood (Negative) Urine Nitrite (Negative) Urine Bilirubin (Negative) Urine Urobilinogen (<2.0) mg/dL Ur Leukocyte Esterase (Negative) 04/17/22 04/17/22 Range/Units 01:17 01:50 WBC (3.8-10.6) k/uL RBC (4.30-5.90) m/uL Hgb (13.0-17.5) gm/dL Hct (39.0-53.0) % MCV (80.0-100.0) fL MCH (25.0-35.0) pg MCHC (31.0-37.0) g/dL RDW (11.5-15.5) % Plt Count (150-450) k/uL MPV Neutrophils % % Lymphocytes % % Monocytes % % Eosinophils % % Basophils % % Neutrophils # (1.3-7.7) k/uL Lymphocytes # (1.0-4.8) k/uL Monocytes # (0-1.0) k/uL Eosinophils # (0-0.7) k/uL Basophils # (0-0.2) k/uL Sodium (137-145) mmol/L Potassium (3.5-5.1) mmol/L Chloride (98-107) mmol/L Carbon Dioxide (22-30) mmol/L Anion Gap mmol/L BUN (9-20) mg/dL Creatinine (0.66-1.25) mg/dL Est GFR (CKD-EPI)AfAm (>60 ml/min/1.73 sqM) Est GFR (CKD-EPI)NonAf (>60 ml/min/1.73 sqM) Glucose (74-99) mg/dL POC Glucose (mg/dL) 115 H (70-110) mg/dL POC Glu Cattle Farmer ID DaniellechelseyTatiana ellyn Plasma Lactic Acid Atul (0.7-2.0) mmol/L Calcium (8.4-10.2) mg/dL Total Bilirubin (0.2-1.3) mg/dL AST (17-59) U/L ALT (4-49) U/L Alkaline Phosphatase (38-126) U/L Total Protein (6.3-8.2) g/dL Albumin (3.5-5.0) g/dL Lipase (23-300) U/L Urine Color Yellow Urine Appearance Clear (Clear) Urine pH 6.0 (5.0-8.0) Ur Specific [place] 1.043 H (1.001-1.035) Urine Protein Negative (Negative) Urine Glucose (UA) 4+ H (Negative) Urine Ketones Negative (Negative) Urine Blood Negative (Negative) Urine Nitrite Negative (Negative) Urine Bilirubin Negative (Negative) Urine Urobilinogen <2.0 (<2.0) mg/dL Ur Leukocyte Esterase Negative (Negative) Disposition Clinical Impression: Abdominal pain Disposition: HOME SELF-CARE Condition: Stable Instructions (If sedation given, give patient instructions): Abdominal Pain (ED) Additional Instructions: Your blood work and CT scan study was negative. Please follow up with your doctor for further evaluation. Return for any new or worsening symptoms Is patient prescribed a controlled substance at d/c from ED?: No Referrals: Alberto England MD [Primary Care Provider] - 1-2 days Time of Disposition: 03:35
--- NOTE | 2022-04-17 03:33 | CT ---
EXAM: CT Abdomen and Pelvis With Intravenous Contrast CLINICAL HISTORY: RLQ pain right flank alex radiates to the testicles . Hx of abd disorders does have a past trauma of head injury that causes a language barrier pt has delayed speech with slurs . Labs are normal TECHNIQUE: Axial computed tomography images of the abdomen and pelvis with intravenous contrast. CTDI is 20.37 mGy and DLP is 1072.4 mGy-cm. This CT exam was performed using one or more of the following dose reduction techniques: automated exposure control, adjustment of the mA and/or kV according to patient size, and/or use of iterative reconstruction technique. Coronal and sagittal reformatted images were created and reviewed. COMPARISON: No relevant prior studies available. FINDINGS: Lung bases: Small amount of bibasilar atelectasis slightly more on the right. ABDOMEN: Liver: . Multiple hypoenhancing hypodense lesions scattered in the liver are likely cysts. The largest is in the inferior tip of right lobe of the liver measuring about 3.1 cm. One near the medial tip of left lobe has rim calcification. Linear enhancement, measuring about 14 mm at its tip right lobe of the liver, best seen on series 201 image 26-29 and another in left lobe on series 201 images 20-24, is likely transient hyperattenuation difference versus vascular malformation. Gallbladder and bile ducts: Unremarkable. No calcified stones. No ductal dilation. Pancreas: Unremarkable. No mass. No ductal dilation. Spleen: Unremarkable. No splenomegaly. Adrenals: Unremarkable. No mass. Kidneys and ureters: Subcentimeter hypodensities in each kidney are likely cysts, too small to characterize. No hydronephrosis. Stomach and bowel: Unremarkable. No obstruction. No mucosal thickening. PELVIS: Appendix: No findings to suggest acute appendicitis. Bladder: Unremarkable. No mass. Reproductive: Unremarkable as visualized. ABDOMEN and PELVIS: Intraperitoneal space: Unremarkable. No free air. No significant fluid collection. Bones/joints: Mild upper lumbar scoliosis convexed to the right. Osteopenia. Mild degenerative changes. Soft tissues: Unremarkable. Vasculature: Small amount of atherosclerotic calcifications. Splenic varices with splenorenal shunt. Lymph nodes: Unremarkable. No enlarged lymph nodes. IMPRESSION: No acute findings.
[2022-04-17 03:55] VITALS: BP 128/72; PULSE 84; RESP 18
== END 2022-04-17 03:57 | disposition home or self-care (01) ==
LOC: EC 00:12
DX: R10.30 Lower abdominal pain, unspecified (principal); E11.9 Type 2 diabetes mellitus without complications; I25.2 Old myocardial infarction; Z79.1 Long term (current) use of non-steroidal anti-inflammatories (NSAID); Z79.82 Long term (current) use of aspirin; Z79.84 Long term (current) use of oral hypoglycemic drugs; Z79.899 Other long term (current) drug therapy; Z87.891 Personal history of nicotine dependence; Z88.0 Allergy status to penicillin
CPT/HCPCS: 36415; 80053; 83605; 83690; 85025; 81003; 74177; 99285; 96374; 96375; J2270; J1170; Q9967

== ENCOUNTER 2022-04-24 15:15 | Inpatient (IN) | payer OTHER, MEDICARE ==
[2022-04-24] MEDS ORDERED: diphenhydrAMINE 50 MG/ML 1 ML VIAL IVP STA (15:32)
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
[2022-04-24 16:32] LABS: Basophils % (A) 1 %; Eosinophils # (A) 0.2 k/uL (0-0.7); Eosinophils % (A) 5 %; HCT 38.9 % (39.0-53.0); HGB 13.2 gm/dL (13.0-17.5); Lymphocytes # (A) 1.3 k/uL (1.0-4.8); Lymphocytes % (A) 27 %; MCH 28.2 pg (25.0-35.0); Mean Platelet Volume 8.7; Monocytes # (A) 0.4 k/uL (0-1.0); Monocytes % (A) 9 %; Neutrophils # (A) 2.7 k/uL (1.3-7.7); Neutrophils % (A) 56 %; Platelet Count 149 k/uL (150-450); RBC 4.69 m/uL (4.30-5.90); WBC 4.8 k/uL (3.8-10.6)
[2022-04-24 16:41] LABS: ALT 20 U/L (4-49); AST 23 U/L (17-59); African American GFR (CKD) >90 (>60 ml/min/1.73 sqM); Albumin 4.4 g/dL (3.5-5.0); Alkaline Phosphatase 47 U/L (38-126); Anion Gap 10 mmol/L; Blood Urea Nitrogen 15 mg/dL (9-20); Calcium 9.1 mg/dL (8.4-10.2); Carbon Dioxide 27 mmol/L (22-30); Chloride 107 mmol/L (98-107); Creatine Kinase 56 U/L (55-170); Glucose 116 mg/dL (74-99); Non-African American GFR(CKD) >90 (>60 ml/min/1.73 sqM); Potassium 4.2 mmol/L (3.5-5.1); Sodium 144 mmol/L (137-145); Total Bilirubin 0.5 mg/dL (0.2-1.3); Total Protein 7.1 g/dL (6.3-8.2)
[2022-04-24] MEDS ORDERED: SODIUM CHLORIDE 0.9% 1,000 ML IV STA ×2 (17:24)
--- NOTE | 2022-04-24 17:34 | XR ---
EXAMINATION TYPE: XR chest 2V DATE OF EXAM: 04/24/2022 5:17 PM COMPARISON: Chest radiographs from 09/06/2021 TECHNIQUE: XR chest 2V Frontal and lateral views of the chest. CLINICAL INDICATION:Male, 66 years old with history of Possible seizure; FINDINGS: Lungs/Pleura: There is no evidence of pleural effusion, focal consolidation, or pneumothorax. Pulmonary vascularity: Unremarkable. Heart/mediastinum: Cardiomediastinal silhouette is unremarkable. Musculoskeletal: No acute osseous pathology. IMPRESSION: No acute cardiopulmonary disease/process.
[2022-04-24] MEDS ORDERED: LORazepam 2 MG/ML INJ IV STA (17:37)
[2022-04-24] MEDS ORDERED: ACETAMINOPHEN TAB 325 MG TAB PO PRN (18:17)
[2022-04-24] MEDS ORDERED: LOPERAMIDE 2 MG CAP PO PRN (18:17)
[2022-04-24] MEDS ORDERED: NALOXONE 0.4 MG/ML 1 ML VIAL IV PRN (20:02)
[2022-04-24] MEDS ORDERED: levETIRAcetam IV 1,000 MG in SALINE 1 100ML.BAG IVPB STA (20:05)
[2022-04-24] MEDS: ATORVASTATIN 40 MG TAB PO SCH (22:08)
[2022-04-24] MEDS: LACOSAMIDE 50 MG TABLET PO SCH (22:08)
[2022-04-24] MEDS: MELATONIN 5 MG TABLET PO SCH (22:08)
[2022-04-24] MEDS: RIFAXIMIN 550 MG TABLET PO SCH (22:08)
[2022-04-25] MEDS: METOPROLOL SUCCINATE (ER) 50 MG TAB.ER.24H PO SCH (09:07)
[2022-04-25] MEDS: LACOSAMIDE 50 MG TABLET PO SCH ×2 (09:07→20:51)
[2022-04-25] MEDS: LORATADINE 10 MG TAB PO SCH (09:07)
[2022-04-25] MEDS: PANTOPRAZOLE 40 MG TABLET PO SCH (09:07)
[2022-04-25] MEDS: ISOSORBIDE MONONITRATE ER 30 MG TAB.ER.24H PO SCH (09:07)
[2022-04-25] MEDS: CLOPIDOGREL 75 MG TAB PO SCH (09:07)
[2022-04-25] MEDS: DAPAGLIFLOZIN PROPANEDIOL 10 MG TABLET PO SCH (09:07)
[2022-04-25] MEDS: MULTIVITAMINS, THERA 1 EACH TAB PO SCH (09:07)
[2022-04-25] MEDS: ASPIRIN 81 MG PO SCH (09:07)
[2022-04-25] MEDS: LACTULOSE 20 GM/30 ML CUP PO SCH (09:08)
[2022-04-25] MEDS: RIFAXIMIN 550 MG TABLET PO SCH ×2 (09:08→20:51)
[2022-04-25 09:25] LABS: African American GFR (CKD) 123.1 (60.0-200.0); Anion Gap 8.8 mmol/L (10.00-18.00); BUN/Creat Ratio 24.5 Ratio (12.00-20.00); Blood Urea Nitrogen 14.7 mg/dL (9.0-27.0); Calcium 8.7 mg/dL (8.7-10.3); Carbon Dioxide 23.2 mmol/L (20.0-27.5); Non-African American GFR(CKD) 106.3 (60.0-200.0); Potassium 3.9 mmol/L (3.5-5.5)
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
[2022-04-25] MEDS: ATORVASTATIN 40 MG TAB PO SCH (20:51)
[2022-04-25] MEDS: MELATONIN 5 MG TABLET PO SCH (20:51)
[2022-04-26] MEDS: LACTULOSE 20 GM/30 ML CUP PO SCH (07:53)
[2022-04-26] MEDS: RIFAXIMIN 550 MG TABLET PO SCH (07:54)
[2022-04-26] MEDS: DAPAGLIFLOZIN PROPANEDIOL 10 MG TABLET PO SCH (07:54)
[2022-04-26] MEDS: PANTOPRAZOLE 40 MG TABLET PO SCH (07:54)
[2022-04-26] MEDS: LACOSAMIDE 50 MG TABLET PO SCH (07:54)
[2022-04-26] MEDS: METOPROLOL SUCCINATE (ER) 50 MG TAB.ER.24H PO SCH (07:54)
[2022-04-26] MEDS: ASPIRIN 81 MG PO SCH (07:55)
[2022-04-26] MEDS: MULTIVITAMINS, THERA 1 EACH TAB PO SCH (07:55)
[2022-04-26] MEDS: CLOPIDOGREL 75 MG TAB PO SCH (07:55)
[2022-04-26] MEDS: ISOSORBIDE MONONITRATE ER 30 MG TAB.ER.24H PO SCH (07:55)
[2022-04-26] MEDS: LORATADINE 10 MG TAB PO SCH (07:55)
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
[2022-04-26 14:05] VITALS: BP 143/80; PULSE 78; RESP 14; TEMP 97.9
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
[2022-04-26 18:36] LABS: Levetiracetam (Keppra) 19.8 ug/mL (3.0-60.0)
== END 2022-04-26 17:49 | disposition home or self-care (01) | DRG 101 ==
LOC: EC 15:15 → 4SSUR 20:04
PROVIDERS: ADMIT Hospitalist; ATTEND Hospitalist
DX: G40.909 Epilepsy, unspecified, not intractable, without status epilepticus (principal); E87.20 Acidosis, unspecified; G93.89 Other specified disorders of brain; H53.462 Homonymous bilateral field defects, left side; S06.9XAS Unspecified intracranial injury with loss of consciousness status unknown, sequela; E11.9 Type 2 diabetes mellitus without complications; E86.0 Dehydration; K76.9 Liver disease, unspecified; H54.7 Unspecified visual loss; E78.5 Hyperlipidemia, unspecified; I10 Essential (primary) hypertension; I44.0 Atrioventricular block, first degree; I25.10 Atherosclerotic heart disease of native coronary artery without angina pectoris; I25.2 Old myocardial infarction; Z79.82 Long term (current) use of aspirin; Z79.02 Long term (current) use of antithrombotics/antiplatelets; Z79.84 Long term (current) use of oral hypoglycemic drugs; Z79.899 Other long term (current) drug therapy; Z87.891 Personal history of nicotine dependence; Z88.0 Allergy status to penicillin; V89.2XXS Person injured in unspecified motor-vehicle accident, traffic, sequela
CPT/HCPCS: 36415; 71046; 80048; 80053; 80177; 80235; 82140; 82550; 83605; 83735; 84484; 85025; 93005

== ENCOUNTER 2022-05-05 12:41 | Emergency (ER) | payer OTHER, MEDICARE ==
[2022-05-05] MEDS ORDERED: LORazepam 2 MG/ML INJ IV STA (12:53)
[2022-05-05 12:58] VITALS: RESP 18
--- NOTE | 2022-05-05 13:03 | ED ---
General Adult HPI - General Stated complaint: Seizure Time Seen by Provider: 05/05/22 12:45 Source: patient, EMS, RN notes reviewed Mode of arrival: EMS Limitations: no limitations - History of Present Illness Initial comments: Patient is a pleasant 66-year-old male presenting to the emergency department with concerns for reported seizure. Patient was at the doctor's office and had a seizure and was sent here. Seizures were reported as staring-type episodes. This was reported as normal for patient seizures per EMS based off family report. Patient states he is feeling fine at this time and has no complaints. EMS helps reported history as patient has history of closed head injury and is a poor historian - Related Data Home Medications Medication Instructions Recorded Confirmed Clopidogrel Bisulfate [Plavix] 75 mg PO DAILY@89905/04/21 04/24/22 Empagliflozin [Jardiance] 25 mg PO DAILY@89905/04/21 04/24/22 Isosorbide Mononitrate ER [Imdur] 30 mg PO DAILY@89905/04/21 04/24/22 Loratadine 10 mg PO DAILY@89905/04/21 04/24/22 Multivitamins, Thera [Multivitamin 1 tab PO DAILY@89905/04/21 04/24/22 (formulary)] Rifaximin [Xifaxan] 550 mg PO BID@899,209905/04/21 04/24/22 Atorvastatin Calcium [Lipitor] 40 mg PO HS@209909/07/21 04/24/22 Aspirin EC [Ecotrin Low Dose] 81 mg PO DAILY@89909/10/21 04/24/22 Metoprolol Succinate [Toprol XL] 50 mg PO DAILY@89909/15/21 04/24/22 levETIRAcetam [Keppra] 1,500 mg PO BID@09/22/21 04/24/22 Omeprazole [PriLOSEC] 20 mg PO DAILY@89911/27/21 04/24/22 Lactulose 10 gm PO DAILY@89904/10/22 04/24/22 Acetaminophen Tab [Tylenol] 650 mg PO Q4H PRN 04/24/22 04/24/22 Antacid 15 ml PO PCHS PRN 04/24/22 04/24/22 Ibuprofen [Motrin] 600 mg PO TID PRN 04/24/22 04/24/22 Lacosamide [Vimpat] 200 mg PO BID@0900,2100 04/24/22 04/24/22 Loperamide [Imodium] 2 - 4 mg PO QID PRN MDD 16 mg 04/24/22 04/24/22 Magnesium Hydroxide [Milk of 1,200 mg PO DAILY PRN 04/24/22 04/24/22 Magnesia] Melatonin 5 mg PO HS 04/24/22 04/24/22 Allergies Allergy/AdvReac Type Severity Reaction Status Date / Time Penicillins AdvReac Unknown Verified 05/05/22 12:58 Childhood Review of Systems ROS Statement: Those systems with pertinent positive or pertinent negative responses have been documented in the HPI. ROS Other: All systems not noted in ROS Statement are negative. Constitutional: Denies: fever Eyes: Denies: eye pain ENT: Denies: ear pain Respiratory: Denies: cough Cardiovascular: Denies: chest pain Endocrine: Denies: fatigue Gastrointestinal: Denies: abdominal pain Genitourinary: Denies: urgency Musculoskeletal: Denies: back pain Skin: Denies: rash Neurological: Denies: weakness Past Medical History Past Medical History: Diabetes Mellitus, Liver Disease, Myocardial Infarction ([place]) Additional Past Medical History / Comment(s): non-verbal, TBI, visually impaired Last Myocardial Infarction Date:: unknown History of Any Multi-Drug Resistant Organisms: None Reported Past Surgical History: Appendectomy, Orthopedic Surgery Additional Past Surgical History / Comment(s): brain, samson left leg, left leg cyst removal Past Anesthesia/Blood Transfusion Reactions: No Reported Reaction Past Psychological History: No Psychological Hx Reported Smoking Status: Former smoker Past Alcohol Use History: Unable to Obtain Past Drug Use History: Unable to Obtain General Exam Limitations: no limitations General appearance: alert, in no apparent distress Head exam: Present: atraumatic Eye exam: Present: normal appearance, PERRL, EOMI Neck exam: Present: normal inspection Respiratory exam: Present: normal lung sounds bilaterally Cardiovascular Exam: Present: regular rate, normal rhythm GI/Abdominal exam: Present: soft. Absent: tenderness Extremities exam: Present: normal inspection Neurological exam: Present: alert. Absent: motor sensory deficit Expanded Neurological exam: Present: protecting the airway Patient oriented to: Present: person. Absent: place, time Sensory exam: Upper Extremity Light Touch: Normal, Lower Extremity Light Touch: Normal Motor strength exam: RUE: 5, LUE: 5, RLE: 5, LLE: 5 Eye Response: (4) open spontaneously Motor Response: (6) obeys commands Verbal Response: (4) confused conversation Psychiatric exam: Present: normal affect, normal mood Skin exam: Present: normal color Course Vital Signs 05/05/22 12:50 Temperature 97.5 F L Pulse Rate 68 Respiratory 18 Rate Blood Pressure 122/77 O2 Sat by Pulse 96 Oximetry EKG Findings - EKG Results: EKG: interpreted by ERMD (For screening AV block with SC of 2:15. Q waves V1 and V2.), sinus rhythm, normal axis, normal ST/T Medical Decision Making - Medical Decision Making Was pt. sent in by a medical professional or institution (, PA, REGIONAL OWNER OPERATOR TRUCK DRIVER, urgent care, hospital, or fci...) When possible be specific @ -Patient was sent from Dr. Barrett's office Did you speak to anyone other than the patient for history (EMS, parent, family, police, friend...)? What history was obtained from this source @ -Mother does arrive later helps provide history including history specifically that this is a chronic problem for him and similar to previous. Did you review nursing and triage notes (agree or disagree)? Why? @ -I reviewed and agree with nursing and triage notes Were old charts reviewed (outside hosp., previous admission, EMS record, old EKG, old radiological studies, urgent care reports/EKG's, fci records)? Report findings @ -No old charts were reviewed Differential Diagnosis (chest pain, altered mental status, abdominal pain women, abdominal pain men, vaginal bleeding, weakness, fever, dyspnea, syncope, headache, dizziness, GI bleed, back pain, seizure, CVA, palpatations, mental health)? @ -Differential Seizure: Recurrent seizure disorder, febrile seizure, alcohol withdrawal, stimulants, meningitis, encephalitis, intercranial hemorrhage, intracranial tumor, stroke, eclampsia, thyrotoxicosis, hypocalcemia, hyponatremia, hypernatremia, hypomagnesemia, psychogenic, this is not meant to be an all-inclusive list. EKG interpreted by me (3pts min.). @ -As above X-rays interpreted by me (1pt min.). @ -None done CT interpreted by me (1pt min.). @ -None done U/S interpreted by me (1pt. min.). @ -None done What testing was considered but not performed or refused? (CT, X-rays, U/S, labs)? Why? @ -None What meds were considered but not given or refused? Why? @ -None Did you discuss the management of the patient with other professionals (professionals i.e. DrLisa, PA, REGIONAL OWNER OPERATOR TRUCK DRIVER, lab, RT, psych nurse, social media community manager, philosophy specialist, teacher, articulation officer, pillowcase sewer)? Give summary @ -No Was smoking cessation discussed for >3mins.? @ -No Was critical care preformed (if so, how long)? @ -No Were there social determinants of health that impacted care today? How? (Homelessness, low income, unemployed, alcoholism, drug addiction, transportation, low edu. Level, literacy, decrease access to med. care, long term, rehab)? @ -No Was there de-escalation of care discussed even if they declined (Discuss DNR or withdrawal of care, Hospice)? DNR status @ -No What co-morbidities impacted this encounter? (DM, HTN, Smoking, COPD, CAD, Cancer, CVA, ARF, Chemo, Hep., AIDS, mental health diagnosis, sleep apnea, morbid obesity)? @ -None Was patient admitted / discharged? Hospital course, mention meds given and route, prescriptions, significant lab abnormalities, going to OR and other pertinent info. @ -Patient reevaluated and remained symptom-free. Mother updated on results and need for follow-up Undiagnosed new problem with uncertain prognosis? @ -No Drug Therapy requiring intensive monitoring for toxicity (Heparin, Nitro, Insulin, Cardizem)? @ -No Were any procedures done? @ -No Diagnosis/symptom? @ -Breakthrough seizure Acute, or Chronic, or Acute on Chronic? @ -Acute on chronic Uncomplicated (without systemic symptoms) or Complicated (systemic symptoms)? @ -default Side effects of treatment? @ -No Exacerbation, Progression, or Severe Exacerbation? @ -No Poses a threat to life or bodily function? How? (Chest pain, [place], [place], pneumonia, PE, COPD, DKA, ARF, appy, cholecystitis, CVA, Diverticulitis, Homicidal, Suicidal, threat to staff... and all critical care pts) @ -No - Lab Data Result diagrams: 05/05/22 13:16 05/05/22 13:16 Lab Results 05/05/22 05/05/22 Range/Units 13:16 13:16 WBC 4.7 (3.8-10.6) k/uL RBC 4.77 (4.30-5.90) m/uL Hgb 13.3 (13.0-17.5) gm/dL Hct 38.9 L (39.0-53.0) % MCV 81.5 (80.0-100.0) fL MCH 27.9 (25.0-35.0) pg MCHC 34.2 (31.0-37.0) g/dL RDW 13.9 (11.5-15.5) % Plt Count 150 (150-450) k/uL MPV 9.4 Neutrophils % 54 % Lymphocytes % 27 % Monocytes % 10 % Eosinophils % 6 % Basophils % 1 % Neutrophils # 2.5 (1.3-7.7) k/uL Lymphocytes # 1.3 (1.0-4.8) k/uL Monocytes # 0.5 (0-1.0) k/uL Eosinophils # 0.3 (0-0.7) k/uL Basophils # 0.0 (0-0.2) k/uL Sodium 140 (137-145) mmol/L Potassium 4.7 (3.5-5.1) mmol/L Chloride 102 (98-107) mmol/L Carbon Dioxide 25 (22-30) mmol/L Anion Gap 13 mmol/L BUN 19 (9-20) mg/dL Creatinine 0.53 L (0.66-1.25) mg/dL Est GFR (CKD-EPI)AfAm >90 (>60 ml/min/1.73 sqM) Est GFR (CKD-EPI)NonAf >90 (>60 ml/min/1.73 sqM) Glucose 89 (74-99) mg/dL Calcium 9.4 (8.4-10.2) mg/dL Magnesium 2.1 (1.6-2.3) mg/dL Total Bilirubin 1.2 (0.2-1.3) mg/dL AST 41 (17-59) U/L ALT 19 (4-49) U/L Alkaline Phosphatase 36 L (38-126) U/L Total Protein 8.1 (6.3-8.2) g/dL Albumin 4.8 (3.5-5.0) g/dL Disposition Clinical Impression: Breakthrough seizure Disposition: HOME SELF-CARE Instructions (If sedation given, give patient instructions): Seizure/Epilepsy Discharge Instructions & Follow-Up, Recurrent Seizures in Adults (ED) Additional Instructions: Please do follow-up with primary care physician in the next day or 2 for recheck. Return for increased seizures, fever or illness, change in mental status, worsening symptoms or other concerns. Please have primary care physician check Keppra level that was drawn today. Is patient prescribed a controlled substance at d/c from ED?: No Referrals: Paula Barrett MD [STAFF PHYSICIAN] - 1-2 days Time of Disposition: 14:26
[2022-05-05 13:32] LABS: Basophils % (A) 1 %; Eosinophils # (A) 0.3 k/uL (0-0.7); Eosinophils % (A) 6 %; HCT 38.9 % (39.0-53.0); HGB 13.3 gm/dL (13.0-17.5); Lymphocytes # (A) 1.3 k/uL (1.0-4.8); Lymphocytes % (A) 27 %; MCH 27.9 pg (25.0-35.0); MCHC 34.2 g/dL (31.0-37.0); MCV 81.5 fL (80.0-100.0); Mean Platelet Volume 9.4; Monocytes # (A) 0.5 k/uL (0-1.0); Monocytes % (A) 10 %; Neutrophils # (A) 2.5 k/uL (1.3-7.7); Neutrophils % (A) 54 %; Platelet Count 150 k/uL (150-450); RBC 4.77 m/uL (4.30-5.90); RDW 13.9 % (11.5-15.5); WBC 4.7 k/uL (3.8-10.6)
[2022-05-05 13:59] LABS: ALT 19 U/L (4-49); AST 41 U/L (17-59); African American GFR (CKD) >90 (>60 ml/min/1.73 sqM); Albumin 4.8 g/dL (3.5-5.0); Alkaline Phosphatase 36 U/L (38-126); Anion Gap 13 mmol/L; Blood Urea Nitrogen 19 mg/dL (9-20); Calcium 9.4 mg/dL (8.4-10.2); Carbon Dioxide 25 mmol/L (22-30); Chloride 102 mmol/L (98-107); Glucose 89 mg/dL (74-99); Magnesium 2.1 mg/dL (1.6-2.3); Non-African American GFR(CKD) >90 (>60 ml/min/1.73 sqM); Sodium 140 mmol/L (137-145); Total Bilirubin 1.2 mg/dL (0.2-1.3); Total Protein 8.1 g/dL (6.3-8.2)
[2022-05-05 14:03] LABS: Potassium 4.7 mmol/L (3.5-5.1)
[2022-05-05 15:20] VITALS: BP 125/75; PULSE 63; TEMP 97.4
== END 2022-05-05 16:41 | disposition home or self-care (01) ==
LOC: EC 12:41
DX: G40.909 Epilepsy, unspecified, not intractable, without status epilepticus (principal); E11.9 Type 2 diabetes mellitus without complications; I25.2 Old myocardial infarction; Z87.891 Personal history of nicotine dependence; Z88.0 Allergy status to penicillin; Z79.82 Long term (current) use of aspirin; Z79.899 Other long term (current) drug therapy; Z79.84 Long term (current) use of oral hypoglycemic drugs
CPT/HCPCS: 36415; 93005; 80053; 80177; 83735; 85025; 99285; 96374; J2060